=== PATIENT | female | born 1975 | race Caucasian/White ===

== ENCOUNTER 2019-07-04 15:05 | Outpatient (CLI) | payer OTHER, SELFPAY ==
--- NOTE | 2019-07-04 15:21 | MM_ITS ---
WS: [id number] BILATERAL SCREENING DIGITAL MAMMOGRAM WITH CAD HISTORY: SCREENING COMPARISON: 05/01/2018 Bilateral CC and MLO views submitted. Computer aided detection analyzed. Breast composition: The breasts are heterogeneously dense, which may obscure small masses. No suspici ous masses, microcalcifications or architectural distortion. MM/[id number] IMPRESSION: BI-RADS: 2-Benign FOLLOW UP: 1 Year Follow-up
== END 2019-07-04 15:06 | disposition home or self-care (01) ==
PROVIDERS: Family Provider Family Medicine; PCP Family Medicine; Visit Provider Family Medicine
DX: Z12.31 Encounter for screening mammogram for malignant neoplasm of breast (principal)
CPT/HCPCS: 77067

== ENCOUNTER 2019-10-30 09:58 | Outpatient (CLI) | payer OTHER, SELFPAY ==
--- NOTE | 2019-10-30 10:08 | XR_ITS ---
WS: [id number] LEFT HIP HISTORY: LEG PAIN, LEFT COMPARISON: None available. LEFT hip: No acute fracture or dislocation. No significant narrowing of the LEFT hip joint. Lateral to the proximal femoral diaphysis is an area of mineralization measuring 7 mm of uncertain et iology. No bone destruction. Could be a soft tissue calcification. Small avulsion fracture not comple tely excluded but thought less likely. XR/XR hip LT 2-3V wo/w pel* [id number] IMPRESSION: 1. No significant LEFT hip joint arthritis. 2. 7 mm area mineralization lateral to the proximal LEFT femur of uncertain et iology. May be a soft tissue calcification and less likely an avulsion fracture . As this may be the area of pain consider further evaluation. CT evaluation or bone scan imaging may be helpful.
--- NOTE | 2019-10-30 10:09 | XR_ITS ---
WS: [id number] LEFT FEMUR: 2 VIEW(S) TECHNIQUE: AP and lateral. HISTORY: LEG PAIN LEFT COMPARISON: None available. No fracture or dislocation. Soft tissues are unremarkable. No foreign body or calcification. XR/XR femur LT min 2V* [id number] Impression: Normal LEFT femur.
== END 2019-10-30 09:59 | disposition home or self-care (01) ==
LOC: RADWPI 10:00
PROVIDERS: Family Provider Family Medicine; PCP Family Medicine; Visit Provider Family Medicine
DX: M79.605 Pain in left leg (principal)
CPT/HCPCS: 73502; 73552

== ENCOUNTER 2019-11-15 11:37 | Outpatient (RCR) | payer OTHER, SELFPAY | END 2019-12-11 23:59 | disposition home or self-care (01) | LOC: SPT 11:37 | PROVIDERS: PCP Family Medicine; Referring Provider Family Medicine; Visit Provider Family Medicine | DX: M54.9 Dorsalgia, unspecified (principal); R20.0 Anesthesia of skin | CPT/HCPCS: 97110; 97162 ==

== ENCOUNTER 2020-08-19 09:04 | Outpatient (CLI) | payer OTHER, SELFPAY ==
--- NOTE | 2020-08-19 09:08 | MM_ITS ---
WS: [id number] BILATERAL SCREENING DIGITAL MAMMOGRAM WITH CAD HISTORY: SCREENING COMPARISON: 07/04/2019, 05/01/2018 Bilateral CC and MLO views submitted. Computer aided detection analyzed. Breast composition: There are scattered areas of fibroglandular density. No suspicious masses, microc alcifications or architectural distortion. Asymmetry in the medial LEFT breast has been stable over m tiple prior studies. MM/[id number] IMPRESSION: BI-RADS: 2-Benign FOLLOW UP: 1 Year Follow-up
== END 2020-08-19 09:05 | disposition home or self-care (01) ==
LOC: RADSHAW 09:06
PROVIDERS: PCP Family Medicine; Visit Provider Family Medicine
DX: Z12.31 Encounter for screening mammogram for malignant neoplasm of breast (principal)
CPT/HCPCS: 77067

== ENCOUNTER 2021-10-08 14:47 | Outpatient (CLI) | payer OTHER, SELFPAY ==
--- NOTE | 2021-10-08 14:52 | MM_ITS ---
WS: [id number] BILATERAL 3D TOMOSYNTHESIS DIGITAL SCREENING MAMMOGRAPHY WITH CAD CLINICAL INFORMATION: SCREENING HISTORY: Screening mammogram. No current complaints. COMPARISON: August 19, 2020 TECHNIQUE: Bilateral CC and MLO views. FINDINGS: The breasts are composed of heterogeneous fibroglandular density tissue, which can limit the detectio n of small underlying mass lesions. Stable ovoid densities or intramammary lymph nodes upper outer RI GHT breast present on multiple prior studies. No suspicious mass, asymmetry, calcifications, or archi tectural distortion. No evidence of malignancy. MM/[place] [id number] IMPRESSION: BI-RADS: 2-Benign FOLLOW UP: 1 Year Follow-up Recommend return to annual screening mammography.
== END 2021-10-08 14:48 | disposition home or self-care (01) ==
LOC: RAD 14:50
PROVIDERS: PCP Family Medicine; Visit Provider Family Medicine
DX: Z12.31 Encounter for screening mammogram for malignant neoplasm of breast (principal)
CPT/HCPCS: 77063; 77067

== ENCOUNTER → 2022-03-10 11:36 | Outpatient (BNVA) | payer OTHER, SELFPAY | PROVIDERS: PCP Family Medicine; Visit Provider Nurse Practitioner Women's Health | DX: Z01.419 Encounter for gynecological examination (general) (routine) without abnormal findings (principal); N91.2 Amenorrhea, unspecified | CPT/HCPCS: 82670; 83001; 87624 ==

== ENCOUNTER → 2022-03-19 15:09 | Outpatient (BNVA) | payer OTHER, SELFPAY | PROVIDERS: PCP Family Medicine; Visit Provider Nurse Practitioner Women's Health | DX: N85.2 Hypertrophy of uterus (principal); D25.9 Leiomyoma of uterus, unspecified | CPT/HCPCS: 76830 ==

== ENCOUNTER 2022-04-28 12:20 | Observation (INO) | payer OTHER, SELFPAY ==
[2022-04-26 13:08] VITALS: BMI 25.8
--- NOTE | 2022-04-26 13:17 | P.ANESASSM_ITS ---
Pre-Anesthetic Assessment Height/Weight: Height 1.73 m Weight 77.111 kg Operation Date: 04/28/22 08:30 Proposed Procedures p Total vaginal hysterectomy, bilateral salpingo-oophorectomy 55340 D25.9(Not Applicable) - Tucker Berumen MD s Salpingo-Oophorectomy (Vaginal)(Bilateral) - Tucker Berumen MD Familial anesthetic complications: Severe PONV - TIVA Social No alcohol and No tobacco Exam alert, oriented x 3, clear to auscultation bilaterally and regular rate & rhythm Airway Dentition: full Pulmonary None reported CV/HEM Hypertension None reported Hepatic None reported GI None reported Metabolic Thyroid Disease (hemithyroidectomy ) [facility] [place] reported Neuropsych None reported Anesthetic Plan ASA status: 2 Anesthesia: General Risk of > 500 ml blood loss (7ml/kg in children): No Medications/Allergies Home Medications Medication Instructions Recorded Confirmed Last Taken Type escitalopram oxalate 5 mg tablet 5 mg PO DAILY 01/21/22 04/26/22 04/26/22 History (Lexapro) losartan 25 mg tablet 25 mg PO DAILY 01/21/22 04/26/22 04/26/22 History metoprolol succinate 100 mg 100 mg PO DAILY 01/21/22 04/26/22 04/26/22 History capsule sprinkle, ext. release 24 hr multivitamin 1 tab PO DAILY 03/10/22 04/26/22 04/26/22 History Allergies Allergy/AdvReac Type Severity Reaction Status Date / Time azithromycin Allergy ADR-Cramping Verified 04/26/22 13:06 of the Muscles tree nut Allergy ALGY-Anaphy Verified 04/26/22 13:06 laxis [facility] Anesthesia Medical History (Updated 03/29/22 @ 14:56 by Tucker Berumen MD) Hypertension No pertinent past medical history neghx: dm,thyroid,dvt/pe PCP: [facility] Surgical History (Updated 03/10/22 @ 11:19 by Janel Jackson APN, REZA) History of lumpectomy of left breast (~2017) benign Hx of dilation and curettage (~1997) Hx of partial thyroidectomy (~2016) Polyp removed, benign Family History Grandmother Breast cancer Paternal--dx age 80's Father Diabetes Heart disease Hypercholesteremia Hypertension Denies family history of Colon cancer Ovarian cancer Uterine cancer Thyroid disease Stroke Social History Smoking and tobacco status: never smoked Data Anesthesia Cardiac Studies: No Data to Display
[2022-04-28] VITALS (24 sets, daily range): BP systolic 120–176; BP diastolic 69–103; PULSE 53–85; RESP 14–20; TEMP 36.1–36.6; O2SAT 92–100; BMI 25.8
[2022-04-28 07:50] LABS: OR HCG Qualitative Urine Negative (Negative)
[2022-04-28 07:57] LABS: Add Urine Microscopic? YES; Bilirubin Urine Neg (Negative); Blood Urine Neg (Negative); Glucose Urine UA Norm (Normal); Ketones Urine Negative (Negative); Leukocyte Esterase Urine Trace (Negative); Nitrate Urine Negative (Negative); Protein Urine Neg (Negative); Urine Appearance Clear (CLEAR); Urine Color Straw (Yellow); Urobilinogen Urine Neg (Negative); pH Urine 6.5 (5-7)
[2022-04-28] MEDS: ondansetron 2 mg/ML SDV 2 mL 4 MG IVP (08:05)
[2022-04-28] MEDS: sodium chloride 0.9% 500 ML IV (08:05)
[2022-04-28 08:12] LABS: Add Urine Culture? No; Bacteria Urine TRACE /hpf; RBC Urine 0-4 /hpf (0-2); Squamous Epithelial Cell Urine 0-4 /hpf (0-5); WBC Urine 0-4 /hpf (0-5)
--- NOTE | 2022-04-28 08:14 | P.ANESUD_ITS ---
Pre-Anesthetic Update Pre-Anesthetic Assessment: Date of Surgery/Procedure: 04/28/22 Preop Emilie gnosis: Uterine fibroid, menopause Proposed Procedure: Operation Date: 04/28/22 08:30 Proposed Procedures p Total vaginal hysterectomy, bilateral salpingo-oophorectomy 54617 D25.9(Not Applicable) - Tucker Berumen MD s Salpingo-Oophorectomy (Vaginal)(Bilateral) - Tucker Berumen MD Any changes to Pre-Anesthetic Assessment?: No Last Intake: Intake Last Liquid Date 04/27/22 Last Liquid Time 21:00 Last Solid Date 04/27/22 Last Solid Time 20:00 Labs Last 48hrs: Urine 04/28/22 Range/Units 07:30 Urine Color Straw (Yellow) Urine Appearance Clear (CLEAR) Urine pH 6.5 (5-7) Ur Specific Gravit y 1.010 (1.005-1.030) Urine Protein Neg (Negative) Urine Glucose (UA) Norm (Normal) Urine Ketones Negative (Negative) Urine Nitrate Negative (Negative) Urine Bilirubin Neg (Negative) Ur Leukocyte Alba ase Trace H (Negative) Urine RBC 0-4 H (0-2) /hpf Urine WBC 0-4 H (0-5) /hpf Vitals: Temperature 97.8 F 04/28/22 07:35 Temperature Source Temporal Artery S can 04/28/22 07:35 Pulse Rate 58 L 04/28/22 07:35 Pulse Rhythm 04/28/22 07:42 Pulse Strength 3+ Normal 04/28/22 07:42 Respiratory Rate 16 04/28/22 07:35 Blood Pressure 161/93 04/28/22 07:35 Blood Pressure Sera n 115 04/28/22 07:35 Pulse Oximetry 96 04/28/22 07:35 Oxygen Delivery Me thod 04/28/22 07:42 Exam: Pre-Anes Outpt Exam: alert, oriented x 3, clear to auscultation bilaterally and regular rate & rhythm Cardiac Studies: 2 No Data to Display
[2022-04-28 08:19] LABS: Basophils % 0.6 %; Eosinophils # 0.2 10^3/uL (0.0-0.8); Eosinophils % 3.1 %; Hemoglobin 13.9 g/dL (11.5-15.3); Lymphocytes # 1.3 10^3/uL (0.8-4.8); Lymphocytes % 18.6 %; Mean Corpuscular HGB Conc 33.9 g/dL (30.0-36.0); Mean Corpuscular Hemoglobin 29.6 pg (28.0-34.0); Mean Corpuscular Volume 87.2 fl (81-99); Mean Platelet Volume 10.5 fL (7.4-10.4); Monocytes # 0.4 10^3/uL (0.2-0.9); Monocytes % 5.5 %; Neutrophils # 5.08 10^3/uL (1.8-7.7); Neutrophils % 72.1 %; Nucleated Red Blood Cells % 0 %; Platelet Count 269 10^3/cmm (130-400); Red Cell Distribution Width 12.5 % (12.1-15.1); White Blood Count 7.1 10^3/uL (4.0-10.0)
[2022-04-28] MEDS: scopolamine 1.5 Patch 1 PATCH TRANSDERMA (08:27)
[2022-04-28] MEDS: enoxaparin 30 mg/0.3 mL Syringe SUBCUT (08:27)
--- NOTE | 2022-04-28 08:34 | W.PM.OPSUD ---
Surgery/Procedure H&P Update DATE OF PROCEDURE: April 28, 2022 DATE H&P PERFORMED: 04/26/22 H&P UPDATE INFORMATION: I have reviewed H&P completed within last 30 days, I have examined patient prior to procedure and No changes to prior documentation PREOP DIAGNOSIS: Uterine fibroid, menopause PLANNED PROCEDURE: Operation Date: 04/28/22 08:30 Proposed Procedures p Total vaginal hysterectomy, bilateral salpingo-oophorectomy 09098 D25.9(Not Applicable) - Tucker Berumen MD s Salpingo-Oophorectomy (Vaginal)(Bilateral) - Tucker Berumen MD
[2022-04-28 08:40] LABS: Alanine Aminotransferase 19 U/L (0-33); Albumin Level 4.3 g/dL (3.5-5.2); Alkaline Phosphatase 111 U/L (35-105); Anion Gap 16.3 (5-19); Aspartate Amino Transferase 21 U/L (0-32); Blood Urea Nitrogen 13 mg/dL (6-20); Calcium 9.7 mg/dL (8.5-10.5); Carbon Dioxide 27 mmol/L (22-29); Chloride 99 mmol/L (98-107); Glomerular Filtration Rate 90.1 mL/min (90-130); Glucose 99 mg/dL (65-115); Osmolality Calculated 286 mOsm/kg (285-295); Potassium 4.3 mmol/L (3.5-5.1); Sodium 138 mmol/L (136-145); Total Bilirubin 0.3 mg/dL (0.15-1.2); Total Protein 8.3 g/dL (6.6-8.7)
[2022-04-28] MEDS: sodium chloride 0.9% 1,000 ML 30 ML IV (08:40)
[2022-04-28] MEDS: ceFOXitin 2,000 MG in sodium chloride 0.9% (plus) 50 ML 100 MG IV (08:48)
[2022-04-28] MEDS: lidocaine 2% INJ 20 mL INJECTION (09:27)
--- NOTE | 2022-04-28 10:52 | PM.OP ---
Operative Report Date of procedure: April 28, 2022 Pre-op diagnosis: Preop Diagnosis Uterine fibroid, menopause Post-op diagnosis: Same as above Post-op findings: Enlarged uterus. Multiple fibroids. Procedure done: Total vaginal hysterectomy with bilateral salpingo-oophorectomy Specimens removed/disposition: Uterus. Left and right fallopian tubes and ovaries. Large pedunculated fibroid Surgeon: Tucker Berumen MD Estimated blood loss (mL): 500 IV fluids (mL): 1,400 Urine output (mL): 400 Brief History: Mrs. Whitman 46-year-old female with a large fibroid uterus Procedure: After informed consent and risks, benefits, indications and alternatives reviewed with the patient was taken to the operating room. The patient was placed in dorsal lithotomy position prepped, and draped in the usual sterile fashion. The pre-procedure timeout verifying the correct patient, procedure, site and side, could not requirements was performed and acknowledge by the OR team. A Whitman catheter was placed. A Bookwalter vaginal retractor was placed into the vagina in usual manner visualize the cervix. Cervix was grasped with a single tooth tenaculum and circumferentially infiltrated with 2% lidocaine. Then cervix was circumferentially incised with bovie and the bladder was dissected off the pubovesical cervical fascia anteriorly with a sponge stick and Metzenbaum scissors. The anterior peritoneal reflection was identified and the anterior cul-de-sac was entered sharply with Metzenbaum scissors. The same procedure was performed posteriorly and a posterior colpotomy was made through the posterior cul-de-sac space without difficulty and the posterior blade of the Bookwalter vaginal retractor was advanced posteriorly into the cul-de-sac. At this time, the left and right uterosacral ligaments were isolated and ligated with 0 Vicryl. The Voyant device was placed over the uterosacral ligaments on either side and was then used in a serial fashion up through the cardinal ligaments bilaterally cross-clamped, cut, and sealed with the Voyant device. Finally, the uterine arteries were cross-clamped, cut, sealed and ligated with the Voyant device. Hemostasis was assured. The broad ligaments were then serially clamped, sealed and cut with the Voyant device on both sides. Excellent hemostasis was visualized. Both cornua were clamped, sealed and cut with the Voyant device. Then the pedicles were then suture ligated with excellent hemostasis. The uterus will not fit through the vagina due to fibroids and size. The uterus worse morcellated with a cold knife, and multiple fibroids were extracted. Then the uterus was excised and submitted for pathologic evaluation. The large pedunculated fibroid also did not fit through the vagina and it was cord morcellated with surgical knife until it fit through the vagina and it was excised without complication. No other abnormalities were noted in the pelvic cavity. Then the right side Infundibular ligament was identified. The ureter was confirmed along the pelvic side wall and peristalsis was noted. The Voyant device was then used to clamp, sealed and transcepted at middistance, again being sure to be clear of the ureter and the fallopian tube and ovary were removed. The same process was then repeated on the left side. Good hemostasis was assure on both sides. The peritoneum was then closed in a pursestring fashion with 0 Vicryl suture. The vaginal cuff angles were closed with [id number] #0 Vicryl suture on both sides and transfixed with the ipsilateral cardinal and uterosacral ligaments. The remainder of the vaginal cuff was closed with #0 Vicryl in a running locked fashion. At this time, instruments were removed from the vagina at hemostasis assured. Whitman catheter was noted yielding clear gus urine. A vaginal packing with Premarin cream was placed and the patient was taken out of dorsal lithotomy position and awakened from the general anesthesia. The patient tolerated the procedure well and was taken to the PACU recovery room in a stable condition. Sponge, lap, needle and instruments counts were correct x3.
--- NOTE | 2022-04-28 13:42 | PC.NURSE ---
PT AVAILABLE IN OB WITH 2 IVSONE IN LEFT WRIST AND ONE IN RIGHT HAND.
--- NOTE | 2022-04-28 14:46 | ANE.PACU2 ---
Inpatient post-anesthesia follow up: Airway intact: Yes Vital signs: Temperature 97.8 F Pulse Rate 70 Respiratory Rate 18 Blood Pressure 156/91 Pulse Oximetry 98 Oxygen Delivery Me thod Room Air Oxygen Flow Rate 3 Fraction of Inspir ed Oxygen Hydration adequate: Yes Nausea and vomiting: No Pain level: 1 Mental status: Baseline
[2022-04-28] MEDS: ketorolac 30 mg/mL INJ IVP (18:38)
[2022-04-28] MEDS: HYDROcodone-acetaminophen 5-325 mg Tablet PO (18:39)
[2022-04-28] MEDS: docusate sodium 100 mg Capsule PO (18:39)
[2022-04-29] MEDS: ketorolac 30 mg/mL INJ IVP (01:51)
[2022-04-29 04:43] VITALS: BP 133/74; PULSE 61; RESP 16; TEMP 36.9; O2SAT 96
[2022-04-29 04:44] LABS: Hematocrit 34.2 % (37.0-47.0); Hemoglobin 11.1 g/dL (11.5-15.3); Mean Corpuscular HGB Conc 32.5 g/dL (30.0-36.0); Mean Corpuscular Hemoglobin 28.7 pg (28.0-34.0); Mean Corpuscular Volume 88.4 fl (81-99); Mean Platelet Volume 11.6 fL (7.4-10.4); Platelet Count 163 10^3/cmm (130-400); Red Blood Count 3.87 10^6/uL (4.1-5.3); Red Cell Distribution Width 12.7 % (12.1-15.1)
[2022-04-29 07:30] VITALS: BP 139/79; PULSE 56; RESP 16; TEMP 36.9
[2022-04-29] MEDS: ibuprofen 800 mg tablet PO (09:14)
[2022-04-29] MEDS: docusate sodium 100 mg Capsule PO (09:14)
--- NOTE | 2022-04-29 10:39 | PM.OBGYDC ---
Discharge Providers MARINE DESIGNER Date of Admission: 04/28/22 12:20 Date of Discharge: 04/29/22 Attending Provider at Admission: Tucker Berumen MD Attending Provider at Discharge: Tucker Berumen MD Primary MARINE DESIGNER: Tucker Berumen MD Primary Care Provider: Jesse Everett MD Reason for Visit Reason for Visit: LEIOMYOMA OF UTERUS, UNSPECIFIED Hospital Course Hospital Course Mrs. Ricks 46-year-old female with a history of a very large uterus with multiple fibroids admitted for planned total vaginal hysterectomy with bilateral salpingo-oophorectomy. The procedures were performed without complication. However uterus have to be cold knife morcellated through the vagina, due to size and fibroids. Overnight observation was uneventful. Patient tolerated the procedure well. She is afebrile and hemodynamically stable postoperative day 1. Tolerating diet well. Ambulating without difficulty. Patient was counseled regarding pelvic rest for 6 weeks (no sex, no tampons, no vaginal douches). Return to the emergency room if any fever, increased bleeding or pain. I spent 35 minutes with the patient in discussion and counseling as documented above This documentation was created by Hip[employer] music theory professor software (known for inherent music theory professor error). Every effort was made to assure accuracy of music theory professor. Any obvious errors or omissions should be clarified with the author of the document. Physical Exam Narrative: GA: Alert and oriented ?3. HEENT: WNL. Heart: Regular rate and rhythm. Lungs: Clear to auscultation bilaterally. Abdomen: Bowel sounds present, nontender TECHNICAL ADVISOR: Scant bleeding. Extremities: No edema, no cyanosis, no calves pain. Urinary Catheter Management: Whitman: Cath Placed During This Visit: yes, but has since been removed by the nurse Reason for Continuing Indwelling Catheter: Perioperative Use in Selected Surgeries Urinary Catheter Date of Insertion: 04/28/22 Urinary Catheter Time of Insertion: 09:11 Date Urinary Catheter Removed: 04/28/22 Time Urinary Catheter Discontinued: 16:39 History History History 5 Term 3 0 Miscarriages/Ectopic 2 Living Children 3 Discharge Data Studies Completed and Pending Pending at discharge Category Date Time Status Pathology: Surgical [PTH] Routine Pth 04/28/22 11:15 Received Laboratory Results WBC 9.0 10^3/uL (4.0-10.0) 04/29/22 04:38 RBC 3.87 10^6/uL (4.1-5.3) L 04/29/22 04:38 Hgb 11.1 g/dL (11.5-15.3) L 04/29/22 04:38 Hct 34.2 % (37.0-47.0) L 04/29/22 04:38 MCV 88.4 fl (81-99) 04/29/22 04:38 MCH 28.7 pg (28.0-34.0) 04/29/22 04:38 MCHC 32.5 g/dL (30.0-36.0) 04/29/22 04:38 RDW 12.7 % (12.1-15.1) 04/29/22 04:38 Plt Count 163 10^3/cmm (130-400) D 04/29/22 04:38 MPV 11.6 fL (7.4-10.4) H 04/29/22 04:38 Neut % (Auto) 72.1 % 04/28/22 07:55 Lymph % (Auto) 18.6 % 04/28/22 07:55 Spencer % (Auto) 5.5 % 04/28/22 07:55 Eos % (Auto) 3.1 % 04/28/22 07:55 Baso % (Auto) 0.6 % 04/28/22 07:55 Neut # (Auto) 5.08 10^3/uL (1.8-7.7) 04/28/22 07:55 Lymph # (Auto) 1.3 10^3/uL (0.8-4.8) 04/28/22 07:55 Spencer # (Auto) 0.4 10^3/uL (0.2-0.9) 04/28/22 07:55 Eos # (Auto) 0.2 10^3/uL (0.0-0.8) 04/28/22 07:55 Baso # (Auto) 0.0 10^3/uL (0.0-0.1) 04/28/22 07:55 Nucleated RBC % (auto) 0 % 04/28/22 07:55 Nucleated RBCs # 0.0 /100WBC 04/28/22 07:55 Sodium 138 mmol/L (136-145) 04/28/22 07:55 Potassium 4.3 mmol/L (3.5-5.1) 04/28/22 07:55 Chloride 99 mmol/L (98-107) 04/28/22 07:55 Carbon Dioxide 27 mmol/L (22-29) 04/28/22 07:55 Anion Gap 16.3 (5-19) 04/28/22 07:55 BUN 13 mg/dL (6-20) 04/28/22 07:55 Creatinine 0.7 mg/dL (0.5-0.9) 04/28/22 07:55 GFR Calculation 90.1 mL/min (90-130) 04/28/22 07:55 Glucose 99 mg/dL (65-115) 04/28/22 07:55 Calculated Osmolality 286 mOsm/kg (285-295) 04/28/22 07:55 Calcium 9.7 mg/dL (8.5-10.5) 04/28/22 07:55 Total Bilirubin 0.3 mg/dL (0.15-1.2) 04/28/22 07:55 AST 21 U/L (0-32) 04/28/22 07:55 ALT 19 U/L (0-33) 04/28/22 07:55 Alkaline Phosphatase 111 U/L (35-105) H 04/28/22 07:55 Total Protein 8.3 g/dL (6.6-8.7) 04/28/22 07:55 Albumin 4.3 g/dL (3.5-5.2) 04/28/22 07:55 Globulin 4.0 g/dL (1.3-4.6) 04/28/22 07:55 Urine Color Straw (Yellow) 04/28/22 07:30 Urine Appearance Clear (CLEAR) 04/28/22 07:30 Urine pH 6.5 (5-7) 04/28/22 07:30 Ur Specific [place] 1.010 (1.005-1.030) 04/28/22 07:30 Urine Protein Neg (Negative) 04/28/22 07:30 Urine Glucose (UA) Norm (Normal) 04/28/22 07:30 Urine Ketones Negative (Negative) 04/28/22 07:30 Urine Blood Neg (Negative) 04/28/22 07:30 Urine Nitrate Negative (Negative) 04/28/22 07:30 Urine Bilirubin Neg (Negative) 04/28/22 07:30 Urine Urobilinogen Neg mg/dL (Negative) 04/28/22 07:30 Ur Leukocyte Esterase Trace (Negative) H 04/28/22 07:30 Urine RBC 0-4 /hpf (0-2) H 04/28/22 07:30 Urine WBC 0-4 /hpf (0-5) H 04/28/22 07:30 Ur Squamous Epith Cells 0-4 /hpf (0-5) H 04/28/22 07:30 Amorphous Sediment Not Reportable 04/28/22 07:30 Urine Bacteria Trace /hpf (NONE) 04/28/22 07:30 Urine HCG, Qual Negative (Negative) 04/28/22 07:07 Blood Type O Positive 04/28/22 07:55 Rho(D) Type Positive 04/28/22 07:55 Antibody Screen Negative 04/28/22 07:55 Vitals Last Vital Signs Temp 98.4 F 04/29/22 07:30 Pulse 56 L 04/29/22 07:30 Resp 16 04/29/22 07:30 BP 139/79 04/29/22 07:30 Pulse Ox 96 04/29/22 04:43 O2 Del Method 04/29/22 07:30 O2 Flow Rate 3 04/28/22 12:25 Discharge Plan Discharge Patient Disposition: Home Condition: Stable Prescriptions: New hydrocodone-acetaminophen 5-325 mg tablet 1 tab PO Q4H PRN (Reason: pain) Qty: 30 0RF acetaminophen 325 mg capsule 325 mg PO Q4H PRN (Reason: fever or postoperative pain) Qty: 60 0RF Continued multivitamin Tablet 1 tab PO DAILY metoprolol succinate 100 mg capsule,sprinkle,ER 24hr 100 mg PO DAILY losartan 25 mg tablet 25 mg PO DAILY escitalopram oxalate [Lexapro] 5 mg tablet 5 mg PO DAILY Discharge Orders: Discharge Order (Routine); Ordered 04/29/22 Ordered By: Tucker Berumen Referrals: Tucker Berumen MD [Physician] - 2 weeks Discharge Diet: Usual diet Discharge Activity: Limit activity as instructed Patient Instructions: Opioid Safety, Vaginal Hysterectomy (GEN), Hysterectomy (GEN), Salpingo-Oophorectomy (GEN), Uterine Fibroids (GEN) Activity Restrictions/Additional Instructions: 1. Please call [facility] on next working day to make your post-operative appointment in 2 weeks. 2. Please stay home until you come back to the clinic on first post-operative check up. 3. Please follow instructions on your medications CAREFULLY. 4. If you have abdominal incision, do not cover it unless dressing is necessary because of drainage. OK to shower, but avoid bath. Leave steri-strips until they fall off. If they are still on one week after surgery, you may remove them. 5. If you had vaginal surgery or vaginal repair, Dr. Berumen may instruct you to take SITZ bath. 6. Yellow, blood tinged odorous vaginal discharge is usually normal after hysterectomy or vaginal surgeries. 7. No sexual intercourse, tampons, or douches until you are completely released from the post-operative care. 8. Avoid constipation by eating right and maybe using some Metamucil or Milk of Magnesia. 9. All prescription refills are given during the working hours. Please do no wait till it runs out. Call the clinic at [phone] before your medication runs out. The clinic will get in touch with your doctor to prescribe medications if necessary. 10. Please remain within 40 mile radius from our hospital because emergencies do happen now and then during the post-operative period. 11. If you have stairs at home, take one step at a time slowly and minimize the number of trips. It helps to stay in one floor for the next few days. No lifting except what you can lift by one hand until you are released from the post-operative care. 12. Driving is discouraged until you are well healed. It may be 3-4 weeks before you feel strong enough to drive. You should be able to turn and look through the rear window without pain and you should be able to push the brake pedal very hard without pain before you drive. No fast rules, but SAFETY should be your primary concern. DO NOT drive if you are on sedating medications such as narcotics. 13. Call the clinic (during working hours) to make urgent appointment or go to the Emergency room, if any of the following occurs: i. Vaginal bleeding becomes heavy, more than a period. ii. Incision becomes red and sore, or drains pus. iii. Your temperature is over 100.4 or you have chill. iv. IV site becomes red and swollen (a little ``knot?? is usually OK) v. Persistent nausea and vomiting vi. Persistent constipation or diarrhea vii. Rash or allergic reaction to medications. Discharge Attestations MARINE DESIGNER Time Spent in Discharge Care*: greater than 30 min Coding Level of Care Code Acute Planishing Hammer Operator for Jose D Hart
[2022-04-29 11:10] VITALS: BP 147/83; PULSE 54; RESP 18; TEMP 36.9
[2022-04-29 11:15] VITALS: BP 147/83; PULSE 54; RESP 18; TEMP 36.9
== END 2022-04-29 11:15 | disposition home or self-care (01) ==
LOC: OBGYN 12:20
PROVIDERS: Admitting Provider Obstetrics & Gynecology; PCP Family Medicine; Visit Provider Obstetrics & Gynecology
PROC: (CPT 58262; principal; 2022-04-28 08:30)
PROC: (CPT 58720; 2022-04-28 08:30)
DX: D25.9 Leiomyoma of uterus, unspecified (principal); I10 Essential (primary) hypertension
CPT/HCPCS: 58262; 36415; 80053; 81001; 81025; 84703; 85025; 85027; 86850; 86900; 88307; G0378; J0131; J0694; J1100; J1170; J1200; J1650; J1885; J2250; J2405; J2550; J2704; J2710; J3010; J3490; J7030; J7040; Q9968

== ENCOUNTER 2022-09-17 08:44 | Observation (INO) | payer OTHER, SELFPAY ==
[2022-09-17] VITALS (17 sets, daily range): BP systolic 112–161; BP diastolic 64–98; PULSE 52–119; RESP 16–19; TEMP 36.4–36.8; O2SAT 91–100
--- NOTE | 2022-09-17 09:20 | ED_ITS ---
Documented by User: NICOLASA Johnson 09/17/22 11:27 HPI - Abdominal Pain General: Chief Complaint: Abdominal Pain Stated Complaint: Abd pain, N/V Time Seen by Provider: 09/17/22 08:50 History of Present Illness: Patient is a 46-year-old female comes to the ED with abdominal pain. Patient was seen by Dr. Hidalgo earlier today and sent here to the ED for evaluation for acute abdomen or appendicitis. symptoms started last night. Endorses nausea, vomiting and decreased appetite. Patient's abdominal pain is located in the right lower quadrant of her abdomen. She rates it currently a 5 out of 10 but says sometimes pain becomes more intense. Denies any diarrhea, constipation, dysuria or hematuria. Past surgical history of hysterectomy. Denies any fevers. Associated Symptoms: Reports nausea and vomiting; Denies chills, constipation, diarrhea, dysuria, fever(s), hematochezia and hematuria Review of Systems Const: Denies: fever(s), chills or fatigue Eyes: Denies: change in vision or eye discomfort ENMT: Denies: throat pain, odynophagia, nasal discharge or nasal congestion Card: Denies: chest pain, palpitations, edema, swelling of feet/ankles, d yspnea on exertion or orthopnea Resp: Denies: dyspnea, productive cough or non-productive cough GI: Reports: abdominal pain, nausea and vomiting; Denies: diarrhea, constipation or hematochezia : Denies: flank pain, dysuria or hematuria Musc: Denies: neck pain, back pain or extremity swelling Skin/Breast: Denies: rash or new lesions Neuro: Denies: headache(s), numbness in extremities or weakness in extremities PFSH ED PFSH: Medical History Acute abdomen Encounter for surgical aftercare following surgery of genitourinary system Hypertension No pertinent past medical history neghx: dm,thyroid,dvt/pe PCP: [facility] History of lumpectomy of left breast (~2017) benign Hx of dilation and curettage (~1997) Hx of partial thyroidectomy (~2016) Polyp removed, benign Family History Grandmother Breast cancer Paternal--dx age 80's Father Diabetes Heart disease Hypercholesteremia Hypertension Denies family history of Colon cancer Ovarian cancer Uterine cancer Thyroid disease Stroke Social History Smoking and tobacco status: never smoked Physical Exam Const: COMMON NORMALS: patient oriented x3 and alert GENERAL APPEARANCE: not comfortable (Patient appears uncomfortable and in some pain.) HENMT: COMMON NORMALS: normocephalic HEAD & SCALP: normocephalic MOUTH: Normal oral and palatal mucosa present THROAT: posterior oropharynx normal and uvula midline Neck/C-Spine: COMMON NORMALS: supple GENERAL: Yes normal visual inspection Resp: COMMON NORMALS: normal respiratory effort, No retractions, No use of accessory muscles and clear to auscultation bilaterally AUSCULTATION: clear to auscultation bilaterally Cardio: COMMON NORMALS: regular rate, regular rhythm, S1 normal heart sound present, S2 normal heart sound present, No gallops present (Cardio), No clicks present (Cardio), No murmurs present (Cardio) and Peripheral pulses 2+ throughout RATE: regular rate RHYTHM: regular rhythm HEART SOUNDS: S1 normal heart sound present and S2 normal heart sound present PERIPHERAL PULSES: Peripheral pulses 2+ throughout GI: COMMON NORMALS: Normal to inspection, nondistended, normoactive bowel sounds present, Soft to palpation and no masses PALPATION: Yes Soft to palpation, Yes Tenderness to palpation present (GI) Details: RLQ and Yes Rebound tenderness present Details: McBurney's point : COMMON NORMALS: Yes no CVA tenderness BLADDER/KIDNEY EXAM: Yes no CVA tenderness Back/Pelvis: COMMON NORMALS: no CVA tenderness Extremity: COMMON NORMALS: normal to inspection Neuro: COMMON NORMALS: patient oriented x3 SENSORIUM/ORIENTATION: Yes alert GAIT: Yes Normal gait present Skin: GENERAL SKIN EXAM: dry skin Course Vital Signs: Vital signs: Vital Signs Temperature 97.5 F L 09/17/22 08:48 Pulse Rate 119 H 09/17/22 08:53 Respiratory Rate 19 H 09/17/22 08:53 Blood Pressure 128/71 09/17/22 08:53 Pulse Oximetry 97 09/17/22 08:53 Oxygen Delivery Me thod 09/17/22 08:53 MDM - Abdominal Pain Medical Decision Making Patient is a 46-year-old female comes to the ED with right lower quadrant abdominal pain. Endorses nausea and vomiting and decreased appetite. Denies any fevers. Vitals are stable. Patient appears uncomfortable is in some pain. She is right lower quadrant abdominal tenderness positive McBurney's point with rebound tenderness as well. White blood cell count 11.6 and the rest of the labs are unremarkable. CT abdomen pelvis shows acute appendicitis with no abscess or perforation. I contacted Dr. Rodriguez the general surgeon and he will be admitting patient and taking her to surgery today. Dr. Mejias reviewed case and agrees with plan. Lab Data I reviewed the patient's lab results. 09/17/22 09:17 09/17/22 09:17 Labs/Radiology: Radiology Impressions Abdomen/Pelvis CT 09/17/22 09:27 IMPRESSION: 1. RIGHT lower quadrant inflammation and changes of acute appendicitis. No abscess or perforation. 2. There is more focal soft tissue thickening at the base of the appendix. May all be postinflammatory or appendicitis but underlying mass causing the appendiceal obstruction should also be considered during the surgery. 3. Prior hysterectomy. Laboratory Results WBC 11.6 10^3/uL (4.0-10.0) H 09/17/22 09:17 RBC 5.48 10^6/uL (4.1-5.3) H 09/17/22 09:17 Hgb 15.2 g/dL (11.5-15.3) 09/17/22 09:17 Hct 46.1 % (37.0-47.0) 09/17/22 09:17 MCV 84.1 fl (81-99) 09/17/22 09:17 MCH 27.7 pg (28.0-34.0) L 09/17/22 09:17 MCHC 33.0 g/dL (30.0-36.0) 09/17/22 09:17 RDW 13.2 % (12.1-15.1) 09/17/22 09:17 Plt Count 261 10^3/cmm (130-400) 09/17/22 09:17 MPV 10.8 fL (7.4-10.4) H 09/17/22 09:17 Neut % (Auto) 85.7 % 09/17/22 09:17 Lymph % (Auto) 10.3 % 09/17/22 09:17 Jay % (Auto) 3.3 % 09/17/22 09:17 Eos % (Auto) 0.1 % 09/17/22 09:17 Baso % (Auto) 0.3 % 09/17/22 09:17 Neut # (Auto) 9.99 10^3/uL (1.8-7.7) H 09/17/22 09:17 Lymph # (Auto) 1.2 10^3/uL (0.8-4.8) 09/17/22 09:17 Jay # (Auto) 0.4 10^3/uL (0.2-0.9) 09/17/22 09:17 Eos # (Auto) 0.0 10^3/uL (0.0-0.8) 09/17/22 09:17 Baso # (Auto) 0.0 10^3/uL (0.0-0.1) 09/17/22 09:17 Nucleated RBC % (auto) 0 % 09/17/22 09:17 Nucleated RBCs # 0.0 /100WBC 09/17/22 09:17 Sodium 137 mmol/L (136-145) 09/17/22 09:17 Potassium 4.2 mmol/L (3.5-5.1) 09/17/22 09:17 Chloride 97 mmol/L (98-107) L 09/17/22 09:17 Carbon Dioxide 22 mmol/L (22-29) 09/17/22 09:17 Anion Gap 22.2 (5-19) H 09/17/22 09:17 BUN 10 mg/dL (6-20) 09/17/22 09:17 Creatinine 0.8 mg/dL (0.5-0.9) 09/17/22 09:17 GFR Calculation 77.2 mL/min (90-130) L 09/17/22 09:17 Glucose 102 mg/dL (65-115) 09/17/22 09:17 Calculated Osmolality 283 mOsm/kg (285-295) L 09/17/22 09:17 Calcium 9.4 mg/dL (8.5-10.5) 09/17/22 09:17 Total Bilirubin 0.7 mg/dL (0.15-1.2) 09/17/22 09:17 AST 22 U/L (0-32) 09/17/22 09:17 ALT 18 U/L (0-33) 09/17/22 09:17 Alkaline Phosphatase 104 U/L (35-105) 09/17/22 09:17 Total Protein 8.5 g/dL (6.6-8.7) 09/17/22 09:17 Albumin 4.5 g/dL (3.5-5.2) 09/17/22 09:17 Globulin 4.0 g/dL (1.3-4.6) 09/17/22 09:17 Lipase 22 U/L (13-60) 09/17/22 09:17 Urine Color Yellow (Yellow) 09/17/22 09:20 Urine Appearance Sl hazy (CLEAR) A 09/17/22 09:20 Urine pH 8 (5-7) H 09/17/22 09:20 Ur Specific [place] 1.010 (1.005-1.030) 09/17/22 09:20 Urine Protein Neg (Negative) 09/17/22 09:20 Urine Glucose (UA) Norm (Normal) 09/17/22 09:20 Urine Ketones Negative (Negative) 09/17/22 09:20 Urine Blood Neg (Negative) 09/17/22 09:20 Urine Nitrate Negative (Negative) 09/17/22 09:20 Urine Bilirubin Neg (Negative) 09/17/22 09:20 Prot Sulfosalicylic Acd Negative (Negative) 09/17/22 09:20 Urine Urobilinogen Neg mg/dL (Negative) 09/17/22 09:20 Ur Leukocyte Esterase Negative (Negative) 09/17/22 09:20 Discharge Plan Discharge Patient Disposition: Admitted As Inpatient Clinical Impression: Acute appendicitis Qualifiers: Acute appendicitis type: unspecified acute appendicitis type Qualified Code(s): K35.80 - Unspecified acute appendicitis Condition: Stable Coding Level of Care Code ED Catering Assistant for g Fwd Documented by User: González Mejias DO 09/17/22 11:39 HPI - Abdominal Pain General: Chief Complaint: Abdominal Pain Stated Complaint: Abd pain, N/V Time Seen by Provider: 09/17/22 08:50 [facility] ED PFSH: Medical History Acute abdomen Encounter for surgical aftercare following surgery of genitourinary system Hypertension No pertinent past medical history neghx: dm,thyroid,dvt/pe PCP: [facility] History of lumpectomy of left breast (~2017) benign Hx of dilation and curettage (~1997) Hx of partial thyroidectomy (~2016) Polyp removed, benign Family History Grandmother Breast cancer Paternal--dx age 80's Father Diabetes Heart disease Hypercholesteremia Hypertension Denies family history of Colon cancer Ovarian cancer Uterine cancer Thyroid disease Stroke Social History Smoking and tobacco status: never smoked Course Vital Signs: Vital signs: Vital Signs Temperature 97.5 F L 09/17/22 08:48 Pulse Rate 119 H 09/17/22 08:53 Respiratory Rate 19 H 09/17/22 08:53 Blood Pressure 128/71 09/17/22 08:53 Pulse Oximetry 97 09/17/22 08:53 Oxygen Delivery Me thod 09/17/22 08:53 MDM - Abdominal Pain Medical Decision Making Patient is a 46-year-old female comes to the ED with right lower quadrant abd ominal pain. Endorses nausea and vomiting and decreased appetite. Denies any fevers. Vitals are stable. Patient appears uncomfortable is in some pain. She is right lower quadrant abdominal tenderness positive McBurney's point with rebound tenderness as well. White blood cell count 11.6 and the rest of the labs are unremarkable. CT abdomen pelvis shows acute appendicitis with no abscess or perforation. I contacted Dr. Rodriguez the general surgeon and he will be admitting patient and taking her to surgery today. Dr. Mejias reviewed case and agrees with plan. Chart reviewed and patient discussed with midlevel. Agree with assessment and plan. Lab Data 09/17/22 09:17 09/17/22 09:17 Labs/Radiology: Radiology Impressions Abdomen/Pelvis CT 09/17/22 09:27 IMPRESSION: 1. RIGHT lower quadrant inflammation and changes of acute appendicitis. No abscess or perforation. 2. There is more focal soft tissue thickening at the base of the appendix. May all be postinflammatory or appendicitis but underlying mass causing the appendiceal obstruction should also be considered during the surgery. 3. Prior hysterectomy. Laboratory Results WBC 11.6 10^3/uL (4.0-10.0) H 09/17/22 09:17 RBC 5.48 10^6/uL (4.1-5.3) H 09/17/22 09:17 Hgb 15.2 g/dL (11.5-15.3) 09/17/22 09:17 Hct 46.1 % (37.0-47.0) 09/17/22 09:17 MCV 84.1 fl (81-99) 09/17/22 09:17 MCH 27.7 pg (28.0-34.0) L 09/17/22 09:17 MCHC 33.0 g/dL (30.0-36.0) 09/17/22 09:17 RDW 13.2 % (12.1-15.1) 09/17/22 09:17 Plt Count 261 10^3/cmm (130-400) 09/17/22 09:17 MPV 10.8 fL (7.4-10.4) H 09/17/22 09:17 Neut % (Auto) 85.7 % 09/17/22 09:17 Lymph % (Auto) 10.3 % 09/17/22 09:17 Jay % (Auto) 3.3 % 09/17/22 09:17 Eos % (Auto) 0.1 % 09/17/22 09:17 Baso % (Auto) 0.3 % 09/17/22 09:17 Neut # (Auto) 9.99 10^3/uL (1.8-7.7) H 09/17/22 09:17 Lymph # (Auto) 1.2 10^3/uL (0.8-4.8) 09/17/22 09:17 Jay # (Auto) 0.4 10^3/uL (0.2-0.9) 09/17/22 09:17 Eos # (Auto) 0.0 10^3/uL (0.0-0.8) 09/17/22 09:17 Baso # (Auto) 0.0 10^3/uL (0.0-0.1) 09/17/22 09:17 Nucleated RBC % (auto) 0 % 09/17/22 09:17 Nucleated RBCs # 0.0 /100WBC 09/17/22 09:17 Sodium 137 mmol/L (136-145) 09/17/22 09:17 Potassium 4.2 mmol/L (3.5-5.1) 09/17/22 09:17 Chloride 97 mmol/L (98-107) L 09/17/22 09:17 Carbon Dioxide 22 mmol/L (22-29) 09/17/22 09:17 Anion Gap 22.2 (5-19) H 09/17/22 09:17 BUN 10 mg/dL (6-20) 09/17/22 09:17 Creatinine 0.8 mg/dL (0.5-0.9) 09/17/22 09:17 GFR Calculation 77.2 mL/min (90-130) L 09/17/22 09:17 Glucose 102 mg/dL (65-115) 09/17/22 09:17 Calculated Osmolality 283 mOsm/kg (285-295) L 09/17/22 09:17 Calcium 9.4 mg/dL (8.5-10.5) 09/17/22 09:17 Total Bilirubin 0.7 mg/dL (0.15-1.2) 09/17/22 09:17 AST 22 U/L (0-32) 09/17/22 09:17 ALT 18 U/L (0-33) 09/17/22 09:17 Alkaline Phosphatase 104 U/L (35-105) 09/17/22 09:17 Total Protein 8.5 g/dL (6.6-8.7) 09/17/22 09:17 Albumin 4.5 g/dL (3.5-5.2) 09/17/22 09:17 Globulin 4.0 g/dL (1.3-4.6) 09/17/22 09:17 Lipase 22 U/L (13-60) 09/17/22 09:17 Urine Color Yellow (Yellow) 09/17/22 09:20 Urine Appearance Sl hazy (CLEAR) A 09/17/22 09:20 Urine pH 8 (5-7) H 09/17/22 09:20 Ur Specific [place] 1.010 (1.005-1.030) 09/17/22 09:20 Urine Protein Neg (Negative) 09/17/22 09:20 Urine Glucose (UA) Norm (Normal) 09/17/22 09:20 Urine Ketones Negative (Negative) 09/17/22 09:20 Urine Blood Neg (Negative) 09/17/22 09:20 Urine Nitrate Negative (Negative) 09/17/22 09:20 Urine Bilirubin Neg (Negative) 09/17/22 09:20 Prot Sulfosalicylic Acd Negative (Negative) 09/17/22 09:20 Urine Urobilinogen Neg mg/dL (Negative) 09/17/22 09:20 Ur Leukocyte Esterase Negative (Negative) 09/17/22 09:20 Discharge Plan Discharge Patient Disposition: Admitted As Inpatient Clinical Impression: Acute appendicitis Qualifiers: Acute appendicitis type: unspecified acute appendicitis type Qualified Code(s): K35.80 - Unspecified acute appendicitis Condition: Stable Coding Level of Care Code ED Catering Assistant for Jose D Hart
[2022-09-17 09:27] LABS: Basophils % 0.3 %; Eosinophils % 0.1 %; Hematocrit 46.1 % (37.0-47.0); Hemoglobin 15.2 g/dL (11.5-15.3); Lymphocytes # 1.2 10^3/uL (0.8-4.8); Lymphocytes % 10.3 %; Mean Corpuscular Hemoglobin 27.7 pg (28.0-34.0); Mean Corpuscular Volume 84.1 fl (81-99); Mean Platelet Volume 10.8 fL (7.4-10.4); Monocytes # 0.4 10^3/uL (0.2-0.9); Monocytes % 3.3 %; Neutrophils # 9.99 10^3/uL (1.8-7.7); Neutrophils % 85.7 %; Nucleated Red Blood Cells % 0 %; Platelet Count 261 10^3/cmm (130-400); Red Blood Count 5.48 10^6/uL (4.1-5.3); Red Cell Distribution Width 13.2 % (12.1-15.1); White Blood Count 11.6 10^3/uL (4.0-10.0)
--- NOTE | 2022-09-17 09:27 | CT_ITS ---
WS: [id number] CT ABDOMEN AND PELVIS WITH CONTRAST HISTORY: RLQ abdominal tenderness, nausea and vomiting TECHNIQUE: Imaging performed of the abdomen and pelvis with IV contrast. Single phase imaging of the abdomen. Coronal and sagittal reformats are submitted. All CT scans at [facility] use at [address] one of these dose optimization techniques: automated exposure control; mA and/or kV adjustment per patient size (includes targeted exams where dose is matched to clinical indication); or iterative re construction. IV CONTRAST: Omnipaque 350; 100 mL IV. Oral contrast: No DLP: 655.83 mGy.cm COMPARISON: None available. Lower thorax: Lung bases are clear. Heart is normal size. No hiatal hernia. Liver/biliary system: Normal size with no intrahepatic dilatation. Gallbladder: Normal. No gallstones or wall thickening. No pericholecystic fluid. Pancreas: Normal size pancreas and pancreatic duct. No adjacent inflammation. Spleen: Normal size spleen. No mass or infarct. Adrenal glands: Normal. Right kidney: Normal. Left kidney: Normal. Aorta: Normal. Lymphadenopathy: None. Free fluid: None. GI tract: Abnormal appendix. Moderate acute inflammation in the RIGHT lower quadrant involving the ap pendix and the base of the appendix. Mild hyperemia of the appendix measuring up to 7 mm. There is a more focal inflammation and increased soft tissue at the base of the appendix. Periappendiceal inflam mation. No abscess. Abdominal wall: Fat containing umbilical hernia. Pelvis: No free fluid or adenopathy within the pelvis. Prior hysterectomy. Bones: Numerous small bone islands in the pelvis. CT/CT abdomen pelvis w con* [id number] IMPRESSION: 1. RIGHT lower quadrant inflammation and changes of acute appendicitis. No abs cess or perforation. 2. There is more focal soft tissue thickening at the base of the appendix. May all be postinflammatory or appendicitis but underlying mass causing the append iceal obstruction should also be considered during the surgery. 3. Prior hysterectomy.
[2022-09-17 09:28] LABS: Add Urine Microscopic? NO; Charge for UA Resulting for Rev
[2022-09-17] MEDS: sodium chloride 0.9% 1,000 ML 999 ML IV (09:31)
[2022-09-17 09:38] LABS: Blood Urine Neg (Negative); Glucose Urine UA Norm (Normal); Ketones Urine Negative (Negative); Protein Urine Neg (Negative); Urine Appearance SL Hazy (CLEAR); Urine Color Yellow (Yellow); pH Urine 8 (5-7)
[2022-09-17 09:39] LABS: Bilirubin Urine Neg (Negative); Leukocyte Esterase Urine Negative (Negative); Nitrate Urine Negative (Negative); Sulfosalicylic Acid Urine Negative (Negative); Urobilinogen Urine Neg (Negative)
[2022-09-17 09:39] LABS: Alanine Aminotransferase 18 U/L (0-33); Albumin Level 4.5 g/dL (3.5-5.2); Alkaline Phosphatase 104 U/L (35-105); Anion Gap 22.2 (5-19); Aspartate Amino Transferase 22 U/L (0-32); Blood Urea Nitrogen 10 mg/dL (6-20); Calcium 9.4 mg/dL (8.5-10.5); Carbon Dioxide 22 mmol/L (22-29); Chloride 97 mmol/L (98-107); Glomerular Filtration Rate 77.2 mL/min (90-130); Glucose 102 mg/dL (65-115); Lipase 22 U/L (13-60); Osmolality Calculated 283 mOsm/kg (285-295); Potassium 4.2 mmol/L (3.5-5.1); Sodium 137 mmol/L (136-145); Total Bilirubin 0.7 mg/dL (0.15-1.2); Total Protein 8.5 g/dL (6.6-8.7)
[2022-09-17] MEDS: iohexol 350 mg/mL 500 mL Btl (per mL) IV (10:33)
--- NOTE | 2022-09-17 10:44 | PM.HP ---
Providers/Chief Complaint Admitting Physician: Michael Primary Care Provider: Jesse Everett MD Chief Complaint: Abd pain, N/V History of Present Illness Sharon Ricks is a 46 year old female who presents with nothing she knows of makes the pain better except for being still. She is never had pain like this before. she had no diarrhea or constipation. Movement makes the pain worse. She had some subjective fevers. Review of Systems General: Reports: 10 or more systems reviewed and unremarkable except in HPI and below Medications/Allergies Home Medications Medication Instructions Recorded Confirmed Last Taken Type multivitamin 1 tab PO DAILY 03/10/22 09/17/22 09/16/22 History acetaminophen 325 mg capsule 325 mg PO Q4H PRN fever or 04/29/22 09/17/22 Unknown Rx postoperative pain #60 caps estradiol 0.01% (0.1 mg/gram) See Rx Instructions .Route 09/03/22 09/17/22 09/16/22 Rx vaginal cream .COMPLEX #42.5 grams escitalopram oxalate 10 mg tablet 10 mg PO DAILY 09/17/22 09/17/22 09/16/22 History estradiol 0.5 mg tablet 0.5 mg PO DAILY 09/17/22 09/17/22 09/16/22 History metoprolol succinate 100 mg 100 mg PO DAILY 09/17/22 09/17/22 09/16/22 History tablet,extended release 24 hr omega 2-gah-umi-fish oil 1,000 mg 1 cap PO DAILY 09/17/22 09/17/22 09/16/22 History (120 mg-180 mg) capsule (Fish Oil) Allergies Allergy/AdvReac Type Severity Reaction Status Date / Time azithromycin Allergy ADR-Cramping Verified 09/17/22 08:54 of the Muscles methylprednisolone Allergy Unknown Verified 09/17/22 10:10 [From Medrol] tree nut Allergy ALGY-Anaphy Verified 09/17/22 08:54 laxis PFSH Acute PFSH: Medical History Acute abdomen Encounter for surgical aftercare following surgery of genitourinary system Hypertension No pertinent past medical history neghx: dm,thyroid,dvt/pe PCP: [facility] History of lumpectomy of left breast (~2018) benign Hx of dilation and curettage (~1997) Hx of partial thyroidectomy (~2016) Polyp removed, benign Family History Grandmother Breast cancer Paternal--dx age 80's Father Diabetes Heart disease Hypercholesteremia Hypertension Denies family history of Colon cancer Ovarian cancer Uterine cancer Thyroid disease Stroke Social History Smoking and tobacco status: never smoked Vitals/I&O/Wt Last Vital Signs Temp 97.5 F L 09/17/22 08:48 Pulse 119 H 09/17/22 08:53 Resp 19 H 09/17/22 08:53 BP 128/71 09/17/22 08:53 Pulse Ox 97 09/17/22 08:53 O2 Del Method 09/17/22 08:53 Weight last 48 hrs Weight 170 lb Physical Exam Narrative: Generally: No acute distress HEENT: Normocephalic atraumatic, pupils equal round reactive to light. Neck: Free range of motion and nontender. The patient has no adenopathy that I can appreciate. There is no thyromegaly Lungs: Clear to auscultation and percussion Heart: Is regular rate and rhythm without murmurs. There is no S3 or S4 Abdomen: Somewhat obese, right lower quadrant tenderness with rebound. The patient has decreased bowel sounds. There is no hernias that I can appreciate. Pelvis: Stable both AP and medial compression Extremities: No obvious deformities or point tenderness suggestive of fracture. There is no clubbing cyanosis or edema Neurologic: Awake, alert, oriented x3. The patient sensations intact to light touch throughout. Data 09/17/22 09:17 09/17/22 09:17 Attestation for Other Data: I personally reviewed and interpreted the following: (I reviewed all the patient's labs and the CT scan of the abdomen and pelvis) A&P Assessment and plan (1) Acute appendicitis: We will admit the patient to the surgery service. We will give the patient dose of Zosyn. We will schedule the patient for laparoscopic appendectomy. The risk and benefits of this procedure been explained to the patient. The patient seems understand these risk and benefits and would like to proceed. Attestations Medical Necessity Statement*: Acute appendicitis Coding Level of Care Code 45611 Diagnoses Acute appendicitis K35.80
[2022-09-17] MEDS: piperacillin-tazobactam 3.375 GM in sodium chloride 0.9% (plus) 50 ML IV ×2 (11:10→18:24)
[2022-09-17] MEDS: sodium chloride 0.9% 1,000 ML 75 ML IV ×2 (11:14→16:01)
[2022-09-17] MEDS: scopolamine 1.5 Patch 1 PATCH TRANSDERMA (12:22)
--- NOTE | 2022-09-17 12:51 | P.ANESASSM_ITS ---
Pre-Anesthetic Assessment Height/Weight: Height 1.73 m Weight 77.111 kg Temp Pulse Resp BP Pulse Ox O2 Del Method 97.5 F L 119 H 19 H 128/71 97 09/17/22 08:48 09/17/22 11:40 09/17/22 11:40 09/17/22 11:40 09/17/22 11:40 09/17/22 08:53 Preop Diagnosis: acute appendiciitis Operation Date: 09/17/22 12:00 Proposed Procedures p Laparoscopic Appendectomy(Not Applicable) - Adi Rodriguez MD Last intake: Intake Last Liquid Date 09/16/22 Last Liquid Time 20:00 Last Solid Date 09/16/22 Last Solid Time 20:00 Social No alcohol and No tobacco Exam alert, oriented x 3, clear to auscultation bilaterally and regular rate & rhythm Airway Submandibular: within normal limits Cervical ROM: within normal limits Mallampati: Class II History/ROS No significant history except as noted Medications/Allergies Home Medications Medication Instructions Recorded Confirmed Last Taken Type multivitamin 1 tab PO DAILY 03/10/22 09/17/22 09/16/22 History acetaminophen 325 mg capsule 325 mg PO Q4H PRN fever or 04/29/22 09/17/22 Unknown Rx postoperative pain #60 caps estradiol 0.01% (0.1 mg/gram) See Rx Instructions .Route 09/03/22 09/17/22 09/16/22 Rx vaginal cream .COMPLEX #42.5 grams escitalopram oxalate 10 mg tablet 10 mg PO DAILY 09/17/22 09/17/22 09/16/22 History estradiol 0.5 mg tablet 0.5 mg PO DAILY 09/17/22 09/17/22 09/16/22 History metoprolol succinate 100 mg 100 mg PO DAILY 09/17/22 09/17/22 09/16/22 History tablet,extended release 24 hr omega 6-lek-zyj-fish oil 1,000 mg 1 cap PO DAILY 09/17/22 09/17/22 09/16/22 History (120 mg-180 mg) capsule (Fish Oil) Allergies Allergy/AdvReac Type Severity Reaction Status Date / Time azithromycin Allergy ADR-Cramping Verified 09/17/22 08:54 of the Muscles methylprednisolone Allergy Unknown Verified 09/17/22 10:10 [From Medrol] tree nut Allergy ALGY-Anaphy Verified 09/17/22 08:54 laxis Current Medications Generic Name Dose Route Start Last Admin Trade Name Rodolfo PRN Reason Stop Dose Admin Sodium Chloride 1,000 mls @ 75 mls/hr 09/17/22 11:00 09/17/22 11:14 Sodium Chloride 0.9% IV 75 mls/hr .[id number] DEDRA Administration PFSH Anesthesia Medical History Acute abdomen Encounter for surgical aftercare following surgery of genitourinary system Hypertension No pertinent past medical history neghx: dm,thyroid,dvt/pe PCP: [facility] History of lumpectomy of left breast (~2017) benign Hx of dilation and curettage (~1997) Hx of partial thyroidectomy (~2016) Polyp removed, benign Family History Grandmother Breast cancer Paternal--dx age 80's Father Diabetes Heart disease Hypercholesteremia Hypertension Denies family history of Colon cancer Ovarian cancer Uterine cancer Thyroid disease Stroke Social History Smoking and tobacco status: never smoked Data Anesthesia 09/17/22 09:17 09/17/22 09:17 Short CBC 09/17/22 Range/Units 09:17 WBC 11.6 H (4.0-10.0) 10^3/uL Hgb 15.2 (11.5-15.3) g/dL Hct 46.1 (37.0-47.0) % MCV 84.1 (81-99) fl Plt Count 261 (130-400) 10^3/cmm Neut % (Auto) 85.7 % Neut # (Auto) 9.99 H (1.8-7.7) 10^3/uL BMP 09/17/22 09:17 Sodium 137 Potassium 4.2 Chloride 97 L Carbon Dioxide 22 BUN 10 Creatinine 0.8 Glucose 102 Calcium 9.4 Liver Function 09/17/22 Range/Units 09:17 Total Bilirubin 0.7 (0.15-1.2) mg/dL AST 22 (0-32) U/L ALT 18 (0-33) U/L Alkaline Phosphatase 104 (35-105) U/L Albumin 4.5 (3.5-5.2) g/dL Urine 09/17/22 Range/Units 09:20 Urine Color Yellow (Yellow) Urine Appearance Sl hazy A (CLEAR) Urine pH 8 H (5-7) Ur Specific [place] 1.010 (1.005-1.030) Urine Protein Neg (Negative) Urine Glucose (UA) Norm (Normal) Urine Ketones Negative (Negative) Urine Nitrate Negative (Negative) Urine Bilirubin Neg (Negative) Ur Leukocyte Esterase Negative (Negative) Cardiac Studies: No Data to Display
--- NOTE | 2022-09-17 13:27 | PM.OP ---
Operative Report Date of procedure: September 17, 2022 Pre-op diagnosis: acute appendiciitis Post-op diagnosis: same Procedure done: Laparoscopic appendectomy Specimens removed/disposition: Appendix Surgeon: Adi Rodriguez Anesthesia: General Estimated blood loss (mL): 25 Complications: None noted Findings: Acute suppurative nonperforated appendicitis. The appendix was removed without difficulty. The appendiceal stump was flush with the cecum. Condition: stable Disposition: PACU Brief History: This is a 46-year-old female who presents with signs and symptoms of acute appendicitis. The patient underwent a CT scan in the emergency room. There was also consistent with acute appendicitis. The risk and benefits of laparoscopic appendectomy been explained to the patient and her . They seem to understand these risk and benefits and wanted to proceed. Procedure: Procedure in detail: The patient was brought to the operative room placed in the supine position. After adequate general endotracheal anesthesia, the patient's abdomen was prepped and draped in usual sterile fashion. Following this a timeout was performed. The patient's identifiers as well as the goals procedure were discussed. Everyone in room agreed. A towel clip was placed on each side of the umbilicus and lifted towards the ceiling. A curvilinear incision was made at the superior aspect of the umbilicus with a skin knife. Following this a hemostat was used to dissect down to the fascia. Now a 12 mm port was placed through this wound into the abdomen without difficulty. A 10 mm scope was placed through this port. The patient's abdomen was insufflated to 15 mmHg. It was clear that the patient had an inflammatory process in the right lower quadrant. There was purulent exudate easily seen. 2 ports were now placed 1 in the left lower quadrant this was a 12 mm port and then a 5 mm port was placed above the symphysis pubis towards the patient's right. Both of these were placed under direct vision. The patient was now placed in Trendelenburg and then rolled with her left side down the right side up in order for the bowel to follow a from the right lower quadrant. The appendix was easily located. A [place] was used to control the appendix. A [place] was used to create a window in the mesoappendix right at the base. Now a MU stapler with a blue load was placed through this window and fired across the base of the appendix. Now using a white load this was fired across the mesoappendix. I needed to used 2 loads in order to get across the mesoappendix. It should be mentioned that there was some bleeding as I was dissecting the mesoappendix. Lost approximately 10 to 15 cc with a blood. Once the appendix was amputated the mesoappendix stump was carefully inspected. There was no bleeding. The appendix was placed in the Endobag. The patient was flattened out all the blood was suctioned out of the abdomen. I did not think the patient needed to be irrigated. Once again the appendiceal stump was inspected. It was flush with the cecum. There was no bleeding from the mesoappendix. The appendix was pulled out of the umbilical wound. Of course, is in the Endobag. The patient's abdomen was allowed to deflate. The fascia was reapproximated in the left lower quadrant room wound and also the umbilical wound with 0 Vicryl. Now 4-0 Monocryl was used in subcuticular fashion to close all 3 wounds. Dermabond was applied. The patient was awakened and taken to recovery room in stable condition. Following procedure I spoke with the patient's via phone. I explained to him the above findings. All questions were addressed.
[2022-09-17] MEDS: oxyCODONE 5 mg IR Tab/Cap PO ×2 (14:33→18:23)
--- NOTE | 2022-09-17 15:22 | ANE.PACU2 ---
Inpatient post-anesthesia follow up: Vital signs: Temperature 98.1 F Pulse Rate 52 Respiratory Rate 16 Blood Pressure 150/83 Pulse Oximetry 95 Oxygen Delivery Me thod Room Air Oxygen Flow Rate 2 Fraction of Inspir ed Oxygen Hydration adequate: Yes Nausea and vomiting: No Pain level: 3 Mental status: Baseline
[2022-09-17] MEDS: acetaminophen 325 mg Tablet 650 MG PO (19:20)
[2022-09-18] MEDS: acetaminophen 325 mg Tablet 650 MG PO ×2 (00:30→06:33)
[2022-09-18 03:42] VITALS: BP 107/59; PULSE 67; RESP 16; TEMP 36.7; O2SAT 94
[2022-09-18 05:39] LABS: Basophils % 0.3 %; Eosinophils # 0.1 10^3/uL (0.0-0.8); Eosinophils % 1.8 %; Hemoglobin 11.7 g/dL (11.5-15.3); Lymphocytes # 1.4 10^3/uL (0.8-4.8); Lymphocytes % 20.9 %; Mean Corpuscular HGB Conc 30.8 g/dL (30.0-36.0); Mean Corpuscular Volume 90.9 fl (81-99); Mean Platelet Volume 10.9 fL (7.4-10.4); Monocytes # 0.3 10^3/uL (0.2-0.9); Monocytes % 4.1 %; Neutrophils # 4.83 10^3/uL (1.8-7.7); Neutrophils % 72.6 %; Nucleated Red Blood Cells % 0 %; Platelet Count 214 10^3/cmm (130-400); Red Blood Count 4.18 10^6/uL (4.1-5.3); Red Cell Distribution Width 14.1 % (12.1-15.1); White Blood Count 6.7 10^3/uL (4.0-10.0)
[2022-09-18] MEDS: sodium chloride 0.9% 1,000 ML 75 ML IV (05:42)
[2022-09-18 07:42] VITALS: BP 115/74; PULSE 61; RESP 12; TEMP 36.8; O2SAT 96
--- NOTE | 2022-09-18 10:36 | P.DS_ITS ---
Discharge Providers Date of Admission: 09/17/22 13:15 Date of Discharge: September 18, 2022 Attending Provider at Admission: Adi Rodriguez MD Attending Provider at Discharge: Adi Rodriguez MD Primary Care Provider: Jesse Everett MD Diagnoses at Discharge Discharge Diagnosis (1) Acute appendicitis: Details from hospital stay: This patient presented with signs and symptoms of acute appendicitis. The patient underwent laparoscopic appendectomy. Postoperatively the patient is done well. She is ready for discharge at this time. Status: Acute Qualifiers: Acute appendicitis type: unspecified acute appendicitis type Qualified Code(s): K35.80 - Unspecified acute appendicitis Reason for Visit Reason for Visit: Abd pain, N/V Brief History: This a 46-year-old female presented with right lower quadrant pain as well as nausea and vomiting. She underwent a CT scan of the abdomen and pelvis which was consistent with acute appendicitis. Hospital Course Hospital Course The patient underwent laparoscopic appendectomy without difficulty. Postoperatively the patient is doing well. Physical Exam Narrative: Abdomen: Soft, nontender without masses. The patient has normal active bowel sounds. The patient tolerated diet. The patient's incisions are clean and dry. Discharge Data Studies Completed and Pending Completed Studies During Hospitalization Category Date Time Status CT abdomen pelvis w con* [id number] Stat Cat Scan 09/17/22 09:27 Completed Pending at discharge Category Date Time Status Pathology: Surgical [PTH] Routine Pth 09/17/22 13:28 Received Radiology Impressions Abdomen/Pelvis CT 09/17/22 09:27 IMPRESSION: 1. RIGHT lower quadrant inflammation and changes of acute appendicitis. No abscess or perforation. 2. There is more focal soft tissue thickening at the base of the appendix. May all be postinflammatory or appendicitis but underlying mass causing the appe ndiceal obstruction should also be considered during the surgery. 3. Prior hysterectomy. Laboratory Results WBC 6.7 10^3/uL (4.0-10.0) 09/18/22 05:04 RBC 4.18 10^6/uL (4.1-5.3) 09/18/22 05:04 Hgb 11.7 g/dL (11.5-15.3) 09/18/22 05:04 Hct 38.0 % (37.0-47.0) 09/18/22 05:04 MCV 90.9 fl (81-99) D 09/18/22 05:04 MCH 28.0 pg (28.0-34.0) 09/18/22 05:04 MCHC 30.8 g/dL (30.0-36.0) D 09/18/22 05:04 RDW 14.1 % (12.1-15.1) 09/18/22 05:04 Plt Count 214 10^3/cmm (130-400) 09/18/22 05:04 MPV 10.9 fL (7.4-10.4) H 09/18/22 05:04 Neut % (Auto) 72.6 % 09/18/22 05:04 Lymph % (Auto) 20.9 % 09/18/22 05:04 [place] % (Auto) 4.1 % 09/18/22 05:04 Eos % (Auto) 1.8 % 09/18/22 05:04 Baso % (Auto) 0.3 % 09/18/22 05:04 Neut # (Auto) 4.83 10^3/uL (1.8-7.7) 09/18/22 05:04 Lymph # (Auto) 1.4 10^3/uL (0.8-4.8) 09/18/22 05:04 [place] # (Auto) 0.3 10^3/uL (0.2-0.9) 09/18/22 05:04 Eos # (Auto) 0.1 10^3/uL (0.0-0.8) 09/18/22 05:04 Baso # (Auto) 0.0 10^3/uL (0.0-0.1) 09/18/22 05:04 Nucleated RBC % (auto) 0 % 09/18/22 05:04 Nucleated RBCs # 0.0 /100WBC 09/18/22 05:04 Sodium 137 mmol/L (136-145) 09/17/22 09:17 Potassium 4.2 mmol/L (3.5-5.1) 09/17/22 09:17 Chloride 97 mmol/L (98-107) L 09/17/22 09:17 Carbon Dioxide 22 mmol/L (22-29) 09/17/22 09:17 Anion Gap 22.2 (5-19) H 09/17/22 09:17 BUN 10 mg/dL (6-20) 09/17/22 09:17 Creatinine 0.8 mg/dL (0.5-0.9) 09/17/22 09:17 GFR Calculation 77.2 mL/min (90-130) L 09/17/22 09:17 Glucose 102 mg/dL (65-115) 09/17/22 09:17 Calculated Osmolality 283 mOsm/kg (285-295) L 09/17/22 09:17 Calcium 9.4 mg/dL (8.5-10.5) 09/17/22 09:17 Total Bilirubin 0.7 mg/dL (0.15-1.2) 09/17/22 09:17 AST 22 U/L (0-32) 09/17/22 09:17 ALT 18 U/L (0-33) 09/17/22 09:17 Alkaline Phosphatase 104 U/L (35-105) 09/17/22 09:17 Total Protein 8.5 g/dL (6.6-8.7) 09/17/22 09:17 Albumin 4.5 g/dL (3.5-5.2) 09/17/22 09:17 Globulin 4.0 g/dL (1.3-4.6) 09/17/22 09:17 Lipase 22 U/L (13-60) 09/17/22 09:17 Urine Color Yellow (Yellow) 09/17/22 09:20 Urine Appearance Sl hazy (CLEAR) A 09/17/22 09:20 Urine pH 8 (5-7) H 09/17/22 09:20 Ur Specific [place] 1.010 (1.005-1.030) 09/17/22 09:20 Urine Protein Neg (Negative) 09/17/22 09:20 Urine Glucose (UA) Norm (Normal) 09/17/22 09:20 Urine Ketones Negative (Negative) 09/17/22 09:20 Urine Blood Neg (Negative) 09/17/22 09:20 Urine Nitrate Negative (Negative) 09/17/22 09:20 Urine Bilirubin Neg (Negative) 09/17/22 09:20 Prot Sulfosalicylic Acd Negative (Negative) 09/17/22 09:20 Urine Urobilinogen Neg mg/dL (Negative) 09/17/22 09:20 Ur Leukocyte Esterase Negative (Negative) 09/17/22 09:20 Vitals Last Vital Signs Temp 98.2 F 09/18/22 07:42 Pulse 61 09/18/22 07:42 Resp 12 09/18/22 07:42 BP 115/74 09/18/22 07:42 Pulse Ox 96 09/18/22 07:42 O2 Del Method 09/18/22 07:42 O2 Flow Rate 2 09/17/22 13:35 Discharge Plan Discharge Patient Disposition: Home Condition: Stable Prescriptions: New ibuprofen 600 mg tablet 600 mg PO Q6H PRN (Reason: pain) Qty: 20 0RF No Action multivitamin Tablet 1 tab PO DAILY omega 9-pmy-kho-fish oil [Fish Oil] 1,000 mg (120 mg-180 mg) capsule 1 cap PO DAILY estradiol 0.01 % (0.1 mg/gram) cream See Rx Instructions .ROUTE .COMPLEX Qty: 42.5 0RF Dose Instruction: APPLY 1/2 APPLICATORFUL DAILY VAGINALLY FOR 2 WEEKS, THEN TWICE A WEEK THEREAFTER. Rx Instructions: APPLY 1/2 APPLICATORFUL DAILY VAGINALLY FOR 2 WEEKS, THEN TWICE A WEEK THEREAFTER. metoprolol succinate 100 mg tablet extended release 24 hr 100 mg PO DAILY estradiol 0.5 mg tablet 0.5 mg PO DAILY escitalopram oxalate 10 mg tablet 10 mg PO DAILY acetaminophen 325 mg capsule 325 mg PO Q4H PRN (Reason: fever or postoperative pain) Qty: 60 0RF Discharge Orders: Discharge Order (Routine); Ordered 09/18/22 Ordered By: Adi Rodriguez Referrals: Nilo Canales DO [Physician] - 4-7 days (s/p lap appy. follow up) Jesse Everett MD [Primary Care Provider] - Discharge Diet: Regular Discharge Activity: Increase activity as tolerated Patient Instructions: Opioid Safety Activity Restrictions/Additional Instructions: no heavy lifting (GREATER THAN 10 LBS) for 1 week. may shower. No baths for 1 week. Dry wounds completely after shower. Discharge Attestations Time Spent in Discharge Care*: less than 30 min Quality Metrics Clinical Quality Measures [ No reported AMI, CVA or VTE this stay] Coding Level of Care Code 38628 Diagnoses Acute appendicitis K35.80 Acute appendicitis type: unspecified acute appendicitis type
== END 2022-09-18 12:10 | disposition home or self-care (01) ==
LOC: ER 11:27 → OR 11:52 → MEDSURG 13:16
PROVIDERS: Admitting Provider Surgery Surgical Critical Care; Emergency Provider Physician Assistant; PCP Family Medicine; Visit Provider Surgery Surgical Critical Care
PROC: 0DTJ4ZZ Resection of Appendix, Percutaneous Endoscopic Approach (ICD-10-PCS; CPT 44970; principal; 2022-09-17 11:50)
DX: K35.80 Unspecified acute appendicitis (principal); I10 Essential (primary) hypertension; Z90.710 Acquired absence of both cervix and uterus
CPT/HCPCS: 44970; 36415; 74177; 80053; 81003; 83690; 85025; 88304; 96365; 99285; G0378; J1170; J2405; J2543; J2704; J2710; J3010; J3490; J7030; Q9967

== ENCOUNTER 2022-11-01 09:21 | Outpatient (CLI) | payer OTHER, SELFPAY ==
--- NOTE | 2022-11-01 09:27 | MM_ITS ---
WS: [id number] SCREENING DIGITAL BREAST TOMOSYNTHESIS MAMMOGRAM WITH CAD HISTORY: SCREENING COMPARISON: 10/08/2021, 08/19/2020 and 05/01/2018 Bilateral CC and MLO with tomosynthesis and synthetic mammography submitted. Computer aided detection analyzed. Breast composition: The breasts are heterogeneously dense, which may obscure small masses. Slightly l obulated mass posterior RIGHT breast at 10:00 measures 10 mm. Mass has slightly increased in size sin ce the most recent study. LEFT breast is negative. MM/[place] [id number] IMPRESSION: BI-RADS: 0-Incomplete: Need additional imaging evaluation FOLLOW UP: Need Additional Imaging Recommendation: RIGHT breast ultrasound, limited. RIGHT breast 10:00 posterior.
== END 2022-11-01 09:22 | disposition home or self-care (01) ==
LOC: RAD 09:23
PROVIDERS: PCP Family Medicine; Visit Provider Family Medicine
DX: Z12.31 Encounter for screening mammogram for malignant neoplasm of breast (principal)
CPT/HCPCS: 77063; 77067

== ENCOUNTER 2022-11-03 16:03 | Emergency (ER) | payer OTHER, SELFPAY ==
[2022-11-03 16:05] VITALS: BP 191/85; PULSE 73; RESP 16; TEMP 36.7; O2SAT 98; BMI 25.0
--- NOTE | 2022-11-03 16:10 | ED_ITS ---
HPI - Allergic Reaction General: Chief complaint: Allergic Reaction Stated complaint: allergic reaction Time Seen by Provider: 11/03/22 16:10 History of Present Illness: HPI narrative: Ms. simmons is a 47-year-old lady with known tree nut allergy with anaphylaxis presenting to the emergency department for concern of a cashew exposure. She notes symptoms perhaps 1 hour prior to arrival. She did take Benadryl and has had some improvement. She currently has a burning swelling sensation in her throat. Denies other signs of systemic illness/involvement. No other specific changes in health, exacerbating, or alleviating factors identified. Onset (ago): hour(s) Exposure: food Known history of allergy to: Tree nuts Severity: moderate Review of Systems General: Reports: 10 or more systems reviewed and unremarkable except in HPI and below PFSH ED PFSH: Medical History Acute abdomen Encounter for surgical aftercare following surgery of genitourinary system Hypertension No pertinent past medical history neghx: dm,thyroid,dvt/pe PCP: [facility] History History of lumpectomy of left breast (~2017) benign Hx of dilation and curettage (~1997) Hx of partial thyroidectomy (~2016) Polyp removed, benign Status post appendectomy Status post hysterectomy with oophorectomy Family History Grandmother Breast cancer Paternal--dx age 80's Father Diabetes Heart disease Hypercholesteremia Hypertension Denies family history of Colon cancer Ovarian cancer Uterine cancer Thyroid disease Stroke Social History Smoking and tobacco status: never smoked Physical Exam Const: COMMON NORMALS: alert GENERAL APPEARANCE: cooperative and well developed HENMT: COMMON NORMALS: normocephalic and atraumatic HEAD & SCALP: normocephalic and atraumatic THROAT: posterior oropharynx normal Eye: COMMON NORMALS: conjunctivae normal CONJUNCTIVA: Yes conjunctivae normal SCLERA: sclerae normal Neck/C-Spine: COMMON NORMALS: supple GENERAL: Yes trachea midline Resp: COMMON NORMALS: normal respiratory effort EFFORT & INSPECTION: Yes able to speak in complete sentences Cardio: COMMON NORMALS: regular rate and regular rhythm RATE: regular rate RHYTHM: regular rhythm GI: COMMON NORMALS: Soft to palpation PALPATION: Yes Soft to palpation and No Tenderness to palpation present (GI) PERCUSSION: normal to percussion Extremity: GENERAL: Yes normal exam except as noted and No edema Neuro: COMMON NORMALS: moves all extremities SENSORIUM/ORIENTATION: Yes alert and No Orientation impaired Psych: COMMON NORMALS: mental status grossly normal and Normal thought process present THOUGHT PROCESS: Normal thought process present Course Vital Signs: Vital signs: Vital Signs Temperature 98.1 F 11/03/22 16:05 Pulse Rate 40 L 11/03/22 16:33 Respiratory Rate 16 11/03/22 16:33 Blood Pressure 165/89 11/03/22 16:38 Pulse Oximetry 96 11/03/22 16:38 Oxygen Delivery Me thod Room Air 11/03/22 16:38 MDM - Allergic Reaction Medical Decision Making 47-year-old lady with known history of anaphylaxis presenting due to ingestion of cashew. Mild improvement with prehospital Benadryl though still experiencing throat swelling sensation. Allergic reaction treatment including epinephrine ordered. Patient observed serially and did require repeat treatment however then had significant improvement in symptoms. Patient comfortable outpatient treatment. Strict return precautions given. Most likely etiology of symptoms is severe allergic reaction. The results of ED evaluation were discussed with the patient including presc riptions and/or symptomatic cares (if applicable) including appropriate and responsible use, followup plan, and return precautions. The patient verbalized understanding and felt safe for discharge. Medical Records I reviewed the patient's medical records. Lab Data I reviewed the patient's lab results. Discharge Plan Discharge Patient Disposition: Home Clinical Impression: Allergic reaction, Anaphylaxis Condition: Stable Prescriptions: New EpiPen 2-Dimitrios 0.3 mg/0.3 mL auto-injector 0.3 mg IM Q10M PRN (Reason: anaphylaxis) Qty: 2 3RF Rx Instructions: for 2 doses No Action multivitamin Tablet 1 tab PO DAILY metoprolol succinate 100 mg tablet extended release 24 hr 100 mg PO DAILY Qty: 30 11RF omega 1-hpm-tvg-fish oil [Fish Oil] 1,000 mg (120 mg-180 mg) capsule 1 cap PO DAILY estradiol 0.01 % (0.1 mg/gram) cream See Rx Instructions .ROUTE .COMPLEX Qty: 42.5 0RF Dose Instruction: APPLY 1/2 APPLICATORFUL DAILY VAGINALLY FOR 2 WEEKS, THEN TWICE A WEEK THEREAFTER. Rx Instructions: APPLY 1/2 APPLICATORFUL DAILY VAGINALLY FOR 2 WEEKS, THEN TWICE A WEEK THEREAFTER. estradiol 0.5 mg tablet 0.5 mg PO DAILY Qty: 30 4RF escitalopram oxalate 10 mg tablet 10 mg PO DAILY ibuprofen 600 mg tablet 600 mg PO Q6H PRN (Reason: pain) Qty: 20 0RF acetaminophen 325 mg capsule 325 mg PO Q4H PRN (Reason: fever or postoperative pain) Qty: 60 0RF Discharge Orders: Discharge ED (Routine); Ordered 11/03/22 Ordered By: Elian Reyes Referrals: Jesse Everett MD [Primary Care Provider] - Discharge Diet: Usual diet Discharge Activity: Increase activity as tolerated Patient Instructions: Anaphylaxis (ED), General Allergic Reaction (ED) Activity Restrictions/Additional Instructions: Thank you for visiting the emergency department. You are seen in evaluated for allergic reaction. Given improvement we will plan to continue treatment in the outpatient setting as discussed. Please follow-up with your primary care provider. Return to the emergency department for recurrence of symptoms or anything else that you are concerned about and feel needs emergency department evaluation. Coding Level of Care Code ED [employer] for [employer]
[2022-11-03] MEDS: diphenhydrAMINE 50 mg/mL SDV 1mL IVP (16:19)
[2022-11-03] MEDS: EPINEPHrine 1 mg/mL INJ 0.3 MG IM ×2 (16:20→17:04)
[2022-11-03] MEDS: dexamethasone 10 mg/mL INJ IVP (16:22)
[2022-11-03] MEDS: famotidine 20 mg/2 mL INJ 40 MG IVP (16:27)
[2022-11-03 16:33] VITALS: BP 148/98; PULSE 40; RESP 16; O2SAT 98
[2022-11-03 16:38] VITALS: BP 165/89; O2SAT 96
== END 2022-11-03 19:31 | disposition home or self-care (01) ==
PROVIDERS: Emergency Provider Emergency Medicine; PCP Family Medicine
DX: T78.2XXA Anaphylactic shock, unspecified, initial encounter (principal); I10 Essential (primary) hypertension; X58.XXXA Exposure to other specified factors, initial encounter
CPT/HCPCS: 96372; 96374; 96375; 99284; J0171; J1100; J1200; J3490

== ENCOUNTER 2022-11-23 12:25 | Outpatient (CLI) | payer OTHER, SELFPAY ==
--- NOTE | 2022-11-23 12:45 | US_ITS ---
WS: [id number] ULTRASOUND RIGHT BREAST HISTORY: Breast mass seen on screening mammogram of 11/01/2022. COMPARISON: Prior screening mammogram 11/01/2022 and 08/19/2020 TECHNIQUE: 2-D and Doppler. At 1:00, 3 cm from the nipple is a hypoechoic mass measuring 1.0 x 1.0 x 0.5 cm. No increased vascula rity. This does correspond to the mammographic abnormality. There is in the additional smaller hypoec hoic mass in the RIGHT breast at 1:00, 3 cm from the nipple measuring 0.4 x 0.2 cm. These 2 masses ar e very closely positioned adjacent to each other and may be part of the same complex. Hypoechoic mass at 10:00, 2 cm from the nipple measures 6 x 6 x 3 mm. US/US breast RT limited* [id number] IMPRESSION: BI-RADS: 4-Suspicious Finding-Biopsy Should Be Considered FOLLOW-UP: Biopsy Recommended Ultrasound-guided biopsy recommended of the new mass identified on the screenin g and diagnostic ultrasound RIGHT breast at 1:00. There are 2 inseparable compo nents of this mass. Notified Jesse Everett MD at 11/23/2022 1:42 PM.
== END 2022-11-23 12:26 | disposition home or self-care (01) ==
PROVIDERS: PCP Family Medicine; Visit Provider Family Medicine
DX: N63.12 Unspecified lump in the right breast, upper inner quadrant (principal)
CPT/HCPCS: 76642

== ENCOUNTER 2022-12-01 13:56 | Outpatient (CLI) | payer OTHER, SELFPAY ==
--- NOTE | 2022-12-01 14:45 | US_ITS ---
WS: [id number] ULTRASOUND-GUIDED RIGHT BREAST BIOPSY HISTORY: breast mass COMPARISON: 11/23/2022 and 11/02/2019. Procedure, risks and complications are explained to the patient. Medications are reviewed. Consent is obtained. The lobulated versus 2 inseparable masses in the RIGHT breast are localized with ultrasound. Mass loc alizes to 1:00, 3 cm from the nipple. Skin is cleansed with ChloraPrep and anesthetized with 1% buffe red lidocaine. Small dermatome is made. Under sterile conditions mass is biopsied with a 14-gauge Ach ieve needle. Multiple core biopsies are performed. Material placed in formalin and sent to pathology for review. No complications encountered. Breast tissue marker (Bard ultrasound enhanced ribbon): Single. Patient left the radiology suite with no complications. Patient is instructed [place] [facility] [place] [facility] with any concerns. US/[place] [id number] IMPRESSION: 1. Uncomplicated core needle biopsy RIGHT breast mass at 1:00. PATHOLOGY: Fibroadenoma. RECOMMENDATION: No malignancy. Return to annual screening mammography.
== END 2022-12-01 13:57 | disposition home or self-care (01) ==
PROVIDERS: PCP Family Medicine; Visit Provider Family Medicine
DX: D24.1 Benign neoplasm of right breast (principal); N63.12 Unspecified lump in the right breast, upper inner quadrant
CPT/HCPCS: 19083; 88305

== ENCOUNTER 2023-12-16 09:23 | Outpatient (CLI) | payer OTHER, SELFPAY ==
--- NOTE | 2023-12-16 09:32 | MM_ITS ---
WS: [id number] BILATERAL 3D TOMOSYNTHESIS DIGITAL SCREENING MAMMOGRAPHY WITH CAD CLINICAL INFORMATION: SCREENING HISTORY: Screening mammogram. No current complaints. COMPARISON: 11/01/2022 TECHNIQUE: Bilateral CC and MLO views. FINDINGS: The breasts are composed of heterogeneous fibroglandular density tissue, which can limit the detectio n of small underlying mass lesions. Small slightly spiculated ovoid nodule along the LEFT posterior n ipple line is new compared to previous mid depth. This is best seen on the MLO view. Recommend LEFT b reast diagnostic mammography and ultrasound if persistent. Biopsy clip RIGHT breast with stable ovoid nodule MM/[place] [id number] IMPRESSION: BI-RADS: 0-Incomplete: Need additional imaging evaluation FOLLOW UP: Need Additional Imaging Recommend LEFT breast diagnostic mammography and ultrasound if persistent.
== END 2023-12-16 09:24 | disposition home or self-care (01) ==
LOC: RAD 09:23
PROVIDERS: PCP Family Medicine; Visit Provider Family Medicine
DX: Z12.31 Encounter for screening mammogram for malignant neoplasm of breast (principal); R92.323 Mammographic fibroglandular density, bilateral breasts; N63.42 Unspecified lump in left breast, subareolar; N63.10 Unspecified lump in the right breast, unspecified quadrant
CPT/HCPCS: 77063; 77067

== ENCOUNTER 2024-01-23 15:00 | Outpatient (CLI) | payer OTHER, SELFPAY ==
--- NOTE | 2024-01-23 15:00 | MM_ITS ---
WS: [id number] LEFT 3D TOMOSYNTHESIS DIGITAL MAMMOGRAPHY WITH CAD CLINICAL INFORMATION: Additional views HISTORY: Additional views COMPARISON: 12/16/2023 TECHNIQUE: 3 views of the left breast were obtained. FINDINGS: Scattered fibroglandular densities of the left breast. Previously described small slightly spiculated ovoid nodule in the LEFT posterior nipple line is less prominent on the spot compression views today . Ultrasound is described below. ULTRASOUND BREAST LEFT TECHNIQUE: Ultrasound left breast focused area of concern. CLINICAL INFORMATION: C80.1 - Malignant (primary) neoplasm, unspecified FINDINGS: Ultrasound LEFT breast along the posterior nipple line. Normal underlying dense parenchymal tissue. N o cystic or solid lesions. No suspicious lesions to target for biopsy. Findings are benign. Recommend return to annual screening mammography MM/[place] [id number] IMPRESSION: BI-RADS: 2-Benign FOLLOW UP: 1 Year Follow-up Recommend return to annual screening mammography.
--- NOTE | 2024-01-23 15:07 | US_ITS ---
WS: [id number] LEFT 3D TOMOSYNTHESIS DIGITAL MAMMOGRAPHY WITH CAD CLINICAL INFORMATION: Additional views HISTORY: Additional views COMPARISON: 12/16/2023 TECHNIQUE: 3 views of the left breast were obtained. FINDINGS: Scattered fibroglandular densities of the left breast. Previously described small slightly spiculated ovoid nodule in the LEFT posterior nipple line is less prominent on the spot compression views today . Ultrasound is described below. ULTRASOUND BREAST LEFT TECHNIQUE: Ultrasound left breast focused area of concern. CLINICAL INFORMATION: C80.1 - Malignant (primary) neoplasm, unspecified FINDINGS: Ultrasound LEFT breast along the posterior nipple line. Normal underlying dense parenchymal tissue. N o cystic or solid lesions. No suspicious lesions to target for biopsy. Findings are benign. Recommend return to annual screening mammography US/US breast LT limited* [id number] IMPRESSION: BI-RADS: 2-Benign FOLLOW UP: 1 Year Follow-up Recommend return to annual screening mammography.
== END 2024-01-23 15:01 | disposition home or self-care (01) ==
LOC: RAD 15:02
PROVIDERS: PCP Family Medicine; Visit Provider Family Medicine
DX: C80.1 Malignant (primary) neoplasm, unspecified (principal); R92.8 Other abnormal and inconclusive findings on diagnostic imaging of breast; R92.322 Mammographic fibroglandular density, left breast
CPT/HCPCS: 76642; 77061; G0279

== ENCOUNTER 2024-04-11 09:02 | Outpatient (CLI) | payer OTHER, SELFPAY ==
--- NOTE | 2024-04-11 09:07 | XRR_ITS ---
PROCEDURE INFORMATION: Exam: XR Right Hip Exam date and time: 04/11/2024 9:10 AM Age: 48 years old Clinical indication: Hip pain; Right hip TECHNIQUE: Imaging protocol: Radiologic exam of the right hip. Views: 1 view hip with pelvis when performed. COMPARISON: CT abdomen pelvis w con* [id number] 09/17/2022 9:39 AM FINDINGS: Bones/joints: Unremarkable. No acute fracture. Soft tissues: Unremarkable. XR/XR hip RT 2-3V wo/w pel* [id number] IMPRESSION: No acute findings.
== END 2024-04-11 09:03 | disposition home or self-care (01) ==
LOC: RAD 09:03
PROVIDERS: PCP Family Medicine; Visit Provider Family Medicine
DX: M25.551 Pain in right hip (principal)
CPT/HCPCS: 73502

== ENCOUNTER → 2024-12-27 11:14 | Outpatient (BNVA) | payer OTHER, SELFPAY | PROVIDERS: PCP Family Medicine; Visit Provider Nurse Practitioner Women's Health | DX: I10 Essential (primary) hypertension (principal) | CPT/HCPCS: 82306 ==

== ENCOUNTER 2025-01-07 08:22 | Outpatient (CLI) | payer OTHER, SELFPAY ==
--- NOTE | 2025-01-07 08:20 | MM_ITS ---
WS: [id number] SCREENING DIGITAL BREAST TOMOSYNTHESIS MAMMOGRAM WITH CAD HISTORY: Z12.31 - Encounter for screening mammogram for malignant ... COMPARISON: 12/16/2023, 01/23/2024, 11/01/2022 and 10/08/2021 Bilateral CC and MLO with tomosynthesis and synthetic mammography submitted. Computer aided detection analyzed. Breast composition: The breasts are heterogeneously dense, which may obscure small masses. New asymmetry in the upper outer posterior RIGHT breast partially obscured mass measures 6 x 10 x 9 mm. No associated calcifications. There is an additional mass in the medial RIGHT breast with a biopsy clip. This mass has not changed over several prior exams. LEFT breast is negative. MM/MM scr tomosynthesis [id number] IMPRESSION: BI-RADS: 0 - Incomplete: Need additional imaging evaluation FOLLOW UP: Need Additional Imaging RIGHT breast: Spot compression views (CC and MLO). True ML. Ultrasound to follo w if abnormality persists.
== END 2025-01-07 08:23 | disposition home or self-care (01) ==
LOC: RAD 08:23
PROVIDERS: PCP Family Medicine; Visit Provider Nurse Practitioner Women's Health
DX: Z12.31 Encounter for screening mammogram for malignant neoplasm of breast (principal); N63.11 Unspecified lump in the right breast, upper outer quadrant; R92.333 Mammographic heterogeneous density, bilateral breasts
CPT/HCPCS: 77063; 77067

== ENCOUNTER 2025-01-22 10:37 | Outpatient (CLI) | payer OTHER, SELFPAY ==
--- NOTE | 2025-01-22 10:40 | MM_ITS ---
WS: [id number] ADDITIONAL VIEWS RIGHT MAMMOGRAM WITH DIGITAL BREAST TOMOSYNTHESIS. RIGHT BREAST ULTRASOUND HISTORY: R92.8 - Other abnormal and inconclusive findings on diagn... COMPARISON: 01/07/2025, 12/16/2023, 11/01/2022 RIGHT MAMMOGRAM: Spot compression views and true ML with digital breast tomosynthesis and SM. Breast composition: The breasts are heterogeneously dense, which may obscure small masses. Asymmetry persists in the upper outer quadrant of the RIGHT breast. There is no discrete well-formed mass. No distortion. RIGHT BREAST ULTRASOUND 2-D and color Doppler imaging submitted. No discrete well-formed mass identified. This asymmetry is new since 12/16/2023. No distortion. RIGHT breast ultrasound, limited. No mass is identified by ultrasound in the upper outer quadrant. There is an area of shadowing 1 cm from the nipple which during real-time evaluation was edge shadowing and not an abnormality. Also this does not correspond to the mammographic abnormality. MM/MM diag RT tomosynthesis [id number] IMPRESSION: BI-RADS: 3 - Probably Benign FOLLOW UP: 6 Month Follow-up Recommend diagnostic RIGHT mammogram follow-up and ultrasound in 6 months to re evaluate the new asymmetry in the upper outer quadrant. I did discussed this wi th the patient at the time of the exam.
--- NOTE | 2025-01-22 10:47 | US_ITS ---
WS: [id number] ADDITIONAL VIEWS RIGHT MAMMOGRAM WITH DIGITAL BREAST TOMOSYNTHESIS. RIGHT BREAST ULTRASOUND HISTORY: R92.8 - Other abnormal and inconclusive findings on diagn... COMPARISON: 01/07/2025, 12/16/2023, 11/01/2022 RIGHT MAMMOGRAM: Spot compression views and true ML with digital breast tomosynthesis and SM. Breast composition: The breasts are heterogeneously dense, which may obscure small masses. Asymmetry persists in the upper outer quadrant of the RIGHT breast. There is no discrete well-formed mass. No distortion. RIGHT BREAST ULTRASOUND 2-D and color Doppler imaging submitted. No discrete well-formed mass identified. This asymmetry is new since 12/16/2023. No distortion. RIGHT breast ultrasound, limited. No mass is identified by ultrasound in the upper outer quadrant. There is an area of shadowing 1 cm from the nipple which during real-time evaluation was edge shadowing and not an abnormality. Also this does not correspond to the mammographic abnormality. US/US breast RT limited* [id number] IMPRESSION: BI-RADS: 3 - Probably Benign FOLLOW UP: 6 Month Follow-up Recommend diagnostic RIGHT mammogram follow-up and ultrasound in 6 months to re evaluate the new asymmetry in the upper outer quadrant. I did discussed this wi th the patient at the time of the exam.
== END 2025-01-22 10:38 | disposition home or self-care (01) ==
LOC: RAD 10:38
PROVIDERS: PCP Family Medicine; Visit Provider Nurse Practitioner Women's Health
DX: R92.8 Other abnormal and inconclusive findings on diagnostic imaging of breast (principal); R92.333 Mammographic heterogeneous density, bilateral breasts; N64.89 Other specified disorders of breast
CPT/HCPCS: 76642; 77061; G0279

== ENCOUNTER 2025-03-14 08:08 | Day surgery (SDC) | payer OTHER, SELFPAY ==
[2025-03-14 08:35] VITALS: BP 142/93; PULSE 86; RESP 18; TEMP 36.6; O2SAT 97; BMI 25.0
--- NOTE | 2025-03-14 08:49 | W.PM.OPSFHP ---
Same Day Surgery H&P Indication for Procedure/HPI DATE OF PROCEDURE: March 14, 2025 CHIEF COMPLAINT/INDICATIONFOR SURGICAL PROCEDURE: need for screening colonoscopy PREOP DIAGNOSIS: need for screening colonoscopy PLANNED PROCEDURE: Operation Date: 03/14/25 09:55 Proposed Procedures p Colonoscopy 30184 G0121 Z12.11(Not Applicable) - Gibran Olivera MD Medications/Allergies* Home Medications ?Medication ?Instructions ?Recorded ?Confirmed ?Type multivitamin 1 tab PO DAILY 03/10/22 03/11/25 History calcium carbonate 1,000 mg PO DAILY 03/11/25 03/11/25 History escitalopram oxalate 10 mg tablet 10 mg PO DAILY 03/11/25 03/11/25 History metoprolol succinate 100 mg 100 mg PO DAILY 03/11/25 03/11/25 History tablet,extended release 24 hr Allergies/Adverse Reactions Allergy/AdvReac Type Severity Reaction Status Date / Time azithromycin Allergy ADR-Cramping Verified 03/14/25 08:30 of the Muscles methylprednisolone (From Allergy Unknown Verified 03/14/25 08:30 Medrol) tree nut Allergy ALGY-Anaphy Verified 03/14/25 08:30 laxis Current Medications: Generic Name Dose Route Start Last Admin Trade Name Freq PRN Reason Stop Dose Admin Sodium Chloride 1,000 mls @ 15 mls/hr 03/14/25 08:15 03/14/25 08:46 Sodium Chloride 0.9% IV 03/15/25 08:14 15 mls/hr .Q24H PRN Administration COLONOSCOPY FLUIDS Pertinent History/Comorbid Conditions* Medical History (Updated 01/09/25 @ 17:19 by Janel Jackson APN, REZA) Acute abdomen No pertinent past medical history neghx: dm,thyroid,dvt/pe PCP: [facility] Surgical History (Updated 12/27/24 @ 10:43 by Janel Jackson APN, REZA) Status post appendectomy Status post hysterectomy with oophorectomy Hx of partial thyroidectomy (~2016) Polyp removed, benign Hx of dilation and curettage (~1997) History of lumpectomy of left breast (~2017) benign Family History (Updated 03/10/22 @ 10:45 by Shanta Mcqueen) Diabetes Father Heart disease Father Hypercholesteremia Father Breast cancer Grandmother Paternal--dx age 80's Hypertension Father Denies family history of Colon cancer Ovarian cancer Uterine cancer Thyroid disease Stroke Social History Smoking and tobacco/nicotine status: never used tobacco/nicotine Pertinent Exam Findings alert, oriented x 3, clear to auscultation bilaterally and regular rate & rhythm Recommendations Surgery/Procedure today Coding Level of Care Code Acute Code for Chg Fwd
--- NOTE | 2025-03-14 08:57 | P.ANESASSM_ITS ---
Pre-Anesthetic Assessment Height/Weight: Height 1.73 m Weight 74.843 kg Temp Pulse Resp BP Pulse Ox O2 Del Method 97.8 F 86 18 142/93 97 Room Air 03/14/25 08:35 03/14/25 08:35 03/14/25 08:35 03/14/25 08:35 03/14/25 08:35 03/14/25 08:35 Preop Diagnosis: need for screening colonoscopy Operation Date: 03/14/25 09:55 Proposed Procedures p Colonoscopy 23748 G0121 Z12.11(Not Applicable) - Gibran Olivera MD Familial anesthetic complications: PONV Was Beta Dax taken within 24 hours: Yes Was Clonidine taken within 24 hours: N/A Last intake: Intake Last Liquid Date 03/13/25 Last Liquid Time 20:00 Last Solid Date 03/12/25 Last Solid Time 18:00 Social No alcohol and No tobacco Exam alert and oriented x 3 Airway Submandibular: within normal limits Cervical ROM: within normal limits Mallampati: Class I Dentition: full Pulmonary None reported CV/HEM Hypertension None reported Hepatic None reported GI None reported Metabolic Thyroid Disease (hemithyroidectomy-not on any medication or supplements) and None reported Musc/skel None reported Neuropsych None reported Anesthetic Plan ASA status: 2 Anesthesia: Anesthesia Evaluation and MAC Risk of > 500 ml blood loss (7ml/kg in children): No Medications/Allergies Home Medications ?Medication ?Instructions ?Recorded ?Confirmed ?Last Taken ?Type multivitamin 1 tab PO DAILY 03/10/2202/1203/13/25 06:00 History acetaminophen 325 mg capsule 325 mg PO Q4H PRN fever o r 04/29/22 03/11/25 03/13/25 06:00 Rx postoperative pain #60 caps ibuprofen 600 mg tablet 600 mg PO Q6H PRN pain #20 t abs 09/18/22 03/11/25 02/11/25 Rx epinephrine 0.3 mg/0.3 mL 0.3 mg (0.3 mL) IM Q10M PRN 11/03/22 03/11/25 Unknown Rx injection, auto-injector (EpiPen anaphylaxis #2 ea 2-Dimitrios) alprazolam 0.25 mg tablet 0.25 mg PO TID PRN anxiety # 30 tabs 05/16/23 03/11/25 03/13/25 06:00 Rx estradiol 0.01% (0.1 mg/gram) 1 g vaginal .twice weekl y #42.5 12/27/24 03/11/25 03/11/25 Rx vaginal cream grams estradiol 1 mg tablet 1 mg PO DAILY #90 tabs 12/2703/11/25 03/13/25 06:00 Rx calcium carbonate 1,000 mg PO DAILY 03/11/25 0 03/11/25 03/13/25 06:00 History escitalopram oxalate 10 mg tablet 10 mg PO DAILY 03/1103/11/25 03/13/25 06:00 History metoprolol succinate 100 mg 100 mg PO DAILY 03/11/25 0 03/11/25 03/14/25 07:30 History tablet,extended release 24 hr Allergies Allergy/AdvReac Type Severity Reaction Status Date / Time azithromycin Allergy ADR-Cramping Verified 03/14/25 08:30 of the Muscles methylprednisolone (From Allergy Unknown Verified 03/14/25 08:30 Medrol) tree nut Allergy ALGY-Anaphy Verified 03/14/25 08:30 laxis Current Medications Generic Name Dose Route Start Last Admin Trade Name Freq PRN Reason Stop Dose Admin Sodium Chloride 1,000 mls @ 15 mls/hr 03/14/25 08:15 03/14/25 08:46 Sodium Chloride 0.9% IV 03/15/25 08:14 15 mls/hr .Q24H PRN Administration COLONOSCOPY FLUIDS PFSH Anesthesia Medical History (Updated 01/09/25 @ 17:19 by Janel Jackson, BELT NOTCHER, WHASAD) Acute abdomen No pertinent past medical history neghx: dm,thyroid,dvt/pe PCP: [facility] Surgical History Status post appendectomy Status post hysterectomy with oophorectomy Hx of partial thyroidectomy (~2016) Polyp removed, benign Hx of dilation and curettage (~1997) History of lumpectomy of left breast (~2017) benign Family History Grandmother Breast cancer Paternal--dx age 80's Father Diabetes Heart disease Hypercholesteremia Hypertension Denies family history of Colon cancer Ovarian cancer Uterine cancer Thyroid disease Stroke Social History Smoking and tobacco/nicotine status: never used tobacco/nicotine
[2025-03-14 09:43] VITALS: BP 121/68; PULSE 65; RESP 18; TEMP 36.2; O2SAT 97
[2025-03-14 09:56] VITALS: BP 118/74; PULSE 60; RESP 18; O2SAT 97
[2025-03-14 10:13] VITALS: BP 115/84; PULSE 72; RESP 16; O2SAT 99
--- NOTE | 2025-03-14 10:30 | ANE.PACU2 ---
Inpatient post-anesthesia follow up: Airway intact: Yes Vital signs: Temperature 97.1 F Pulse Rate 72 Respiratory Rate 16 Blood Pressure 115/84 Pulse Oximetry 99 Oxygen Delivery Me thod Room Air Oxygen Flow Rate Fraction of Inspir ed Oxygen Hydration adequate: Yes Nausea and vomiting: No Pain level: 1 Mental status: Baseline
== END 2025-03-14 10:30 | disposition home or self-care (01) ==
PROVIDERS: PCP Family Medicine; Visit Provider Surgery
PROC: 0DJD8ZZ Inspection of Lower Intestinal Tract, Via Natural or Artificial Opening Endoscopic (ICD-10-PCS; CPT 45378; principal; 2025-03-14 09:55)
DX: Z12.11 Encounter for screening for malignant neoplasm of colon (principal); K57.30 Diverticulosis of large intestine without perforation or abscess without bleeding; D12.4 Benign neoplasm of descending colon; K63.5 Polyp of colon; D12.6 Benign neoplasm of colon, unspecified; D12.8 Benign neoplasm of rectum; I10 Essential (primary) hypertension; E07.9 Disorder of thyroid, unspecified
CPT/HCPCS: 45380; 88305; J2704; J7030